=== PATIENT | male | born 1950 | race Caucasian/White ===

== ENCOUNTER 2017-07-09 08:07 | Inpatient (IN) ==
[2017-07-09] MEDS ORDERED: *HR* EPINEPHrine 1 MG/ML AMPUL ONE ×3 (08:15→08:36)
[2017-07-09] MEDS ORDERED: methylPREDNISolone 125 MG/2 ML VIAL IVP ONE (08:17)
[2017-07-09] MEDS ORDERED: Famotidine 20 MG/2 ML VIAL IVP ONE (08:17)
[2017-07-09] MEDS ORDERED: Propofol 500 MG/50 ML INFUS..BTL ONE (08:23)
[2017-07-09] MEDS ORDERED: 0.9 % Sodium Chloride 1,000 ML ONE ×2 (08:26→09:36)
--- NOTE | 2017-07-09 08:44 | Emergency Department Note ---
Addendum entered and electronically signed by Colin Cedeno DO 10:08: This addendum serves to add dictation for the patient's EKG performed after intubation. EKG dated 07/09/17 at 09:13 interpreted as sinus rhythm with rate of 64. Normal intervals. Normal axis. Nonspecific ST-T changes. Compared to previous dated 09/02/2013 showing no acute ischemic changes. Original Note: Disposition Clinical Impression: Airway compromise Hypertension Qualifiers: Hypertension type: unspecified Qualified Code(s): I10 - Essential (primary) hypertension BETTYE inhibitor-aggravated angioedema Qualifiers: Encounter type: initial encounter Qualified Code(s): T78.3XXA - Angioneurotic edema, initial encounter Disposition: Admitted As Inpatient Condition: Critical Time of Disposition: 10:02 General Adult HPI - General Chief complaint: ED General Medical Stated complaint: tongue swelling Time Seen by Provider: 07/09/17 08:11 Source: patient, family Mode of arrival: ambulatory Limitations: no limitations Nursing Notes Reviewed: Yes Vital Signs Reviewed: Yes - History of Present Illness HPI Narrative: Mr. Poe, a 67-year-old male, presents from home for evaluation of swelling of his tongue. Onset this morning when he awoke and is getting worse. Patient is currently on an BETTYE inhibitor. He has been for many years. His dose was recently changed from 30 mg to 40 mg; first 40 mg dose was yesterday. He did take his BETTYE inhibitor this morning. No other changes in medications or unusual exposures. PMH: Hypertension, COPD Habits: EtOH use, current every day smoker ROS: Positive: Swelling of his tongue Negative: Fever, chills, nausea, vomiting, chest pains, dyspnea Pain Scale: 0 - Related Data Previous Rx's Medication Instructions Recorded Ciprofloxacin HCl [Cipro] 500 mg PO BID #14 tab 04/03/16 metroNIDAZOLE [Flagyl] 500 mg PO TID #21 tablet 04/03/16 Allergies Allergy/AdvReac Type Severity Reaction Status Date / Time No Known Allergies Allergy Verified 07/09/17 08:13 All systems ED: reviewed and negative except as stated. Review of Systems: As Per HPI Past Medical History - Past Medical History Medical history: Reports: COPD, hypertension Surgical history: Reports: cholecystectomy Psychiatric history: Reports: no psych history - Social History Smoking Status: Current every day smoker Smokeless Tobacco Status: No Alcohol use: Reports: none Drug use: Reports: none Physical Exam Vital Signs Reviewed General: Patient is alert, oriented, and in no acute distress. HEENT: Head is normocephalic and atraumatic. Oral mucosa moist. Right half of tongue is substantially swollen. Floor of mouth is beginning to swell. Roof of mouth is on swollen this time. Posterior pharynx difficult to visualize. Cardiovascular: Heart regular rate and rhythm without clicks, rubs, gallops, or murmurs. No JVD. PMI nondisplaced. Respiratory: Symmetric chest rise with good respiratory effort. Bilateral breath sounds are clear without wheezing, crackles, or rhonchi. Psych: Patient's affect is appropriate for situation. - General General appearance: alert, anxious Course Course Narrative: Patient presents with overt angioedema. Currently localize the right half of his tongue and his substantial. Initially, mild to moderate swelling of the floor of his mouth. No swelling to the roof of his mouth. We followed the patient in the room after triage. During my examination, the swelling of his tongue was becoming visibly worse. His speech was slurred because of his tongue. He was surprisingly calm. He agreed to intubation. When patient was laid supine prior to RSI, that was his first set of concern when his tongue began occluding his airway. We provided IM epinephrine. As soon as IV access was obtained, he was intubated with 30 mg etomidate, 100 mg succinylcholine. Direct visualization was poor; sweling of tongue and floor of mouth inhibited vallecula elevation. Intubation without difficulty using C Amador using 7.5 tube. After intubation, I updated the patient's daughter. She notes he has a history of heavy social alcohol use. After intubation, placed patient on propofol started at 5 mcg/m. This was quickly titrated up to 15. His pressures maintained above 170 systolic. He was bucking the tube despite propofol 15+4 mg Versed plus an additional 30 of etomidate. We paralyzed him with 10 mg vecuronium and increased propofol to 20. Vecuronium was still on board on transport to ICU. Vital Signs Temperature 97.7 F 07/09/17 08:13 Pulse Rate 74 07/09/17 08:13 Respiratory Rate 11 07/09/17 08:13 Blood Pressure 194/116 07/09/17 08:13 O2 Sat by Pulse Oximetry 98 07/09/17 08:13 Temperature 97.7 F 07/09/17 08:13 Pulse Rate 66 07/09/17 09:00 Respiratory Rate 11 07/09/17 09:31 Blood Pressure 191/92 07/09/17 09:31 O2 Sat by Pulse Oximetry 100 07/09/17 09:07 Oxygen Delivery Oxygen Delivery Ventilator Procedures - Intubation Time out performed: No sedative: Etomidate Mg Given: 30 paralytic: Succinylcholine Mg Given: 100 Laryngoscope: fiber optic video scope Assist Device Used: fiber optic device ET Tube Size: 7.5 ET Tube Uncuffed: Yes Tube Secured Depth (cm): 25 Tube Secured Location: lips Tube Placement Confirmation: visualized tube passing through cords, equal breath sounds bilaterally, no breath sounds over epigastrium, confirmation by capnometry Patient Tolerated Procedure: well, other (Had difficulty with post-intubation sedation.) Intubation Complications: difficult intubation (secondary to rapidly progressing angioedema.) Medical Decision Making - Lab Data Result diagrams: 07/09/17 08:36 07/09/17 08:36 Lab Results 07/09/17 07/09/17 Range/Units 08:36 08:36 WBC 5.9 (4.3-11.1) K/mcL RBC 4.65 (4.19-5.50) M/mcL Hgb 14.5 (12.9-16.9) g/dL Hct 42.4 (37.5-50.1) % MCV 91.2 (83.0-100.0) fL MCH 31.2 (28.0-33.3) pg MCHC 34.2 (31.6-35.5) g/dL RDW 13.6 (11.5-14.5) % Plt Count 238 (140-400) K/mcL MPV 9.0 L (9.4-12.4) fL Immature Gran % 0.2 (0-4) % Seg Neutrophils % 63.1 % Lymphocytes % 23.4 % Monocytes % 10.4 % Eosinophils % 2.7 % Basophils % 0.2 % Neutrophils # 3.7 (1.6-8.9) K/mcL Lymphocytes # 1.4 (0.6-4.6) K/mcL Monocytes # 0.6 (0.0-1.3) K/mcL Eosinophils # 0.2 (0.0-0.6) K/mcL Basophils # 0.0 (0.0-0.2) K/mcL Sodium 134 L (136-145) mEq/L Potassium 4.3 (3.5-4.5) mEq/L Chloride 100 (98-109) mEq/L Carbon Dioxide 28 (19-29) mEq/L BUN 11 (8-26) mg/dL Creatinine 0.74 (0.72-1.25) mg/dL Est GFR ( Amer) > 60 (> 60) Est GFR (Non-Af Amer) > 60 (> 60) BUN/Creatinine Ratio 15 (6-26) Glucose 92 (70-99) mg/dL Calculated Osmolality 277 L (280-300) Calcium 9.0 (8.6-10.8) mg/dL Total Bilirubin 0.5 (0.2-1.2) mg/dL AST 19 (5-34) Units/L ALT 15 (0-55) Units/L Alkaline Phosphatase 52 (38-126) Units/L Serum Total Protein 7.1 (6.0-8.3) g/dL Albumin 3.6 (3.5-5.0) g/dL Globulin 3.5 (2.4-3.5) g/dL Albumin/Globulin Ratio 1.0 L (1.1-2.2) Critical Care Time Critical Care Time: Yes Total Critical Care Time: 45 Attestation: The high probability of a clinically significant, sudden or life threatening deterioration of the [resp] system(s) required my full and direct attention, intervention and personal management. The aggregate critical care time was [45] minutes. This time is in addition to time spent performing reported procedures but includes the following: [X] Data Review and interpretation [X] Patient assessment and monitoring of vital signs [X] Documentation [X] Medication orders and management Attestation Statement - Attestation Attestation: I examined this patient and my medical decision-making was reviewed with the Resident Physician, Dr. Cedeno. I agree with the documented findings, disposition and treatment plan as described except to the extent set forth below. Patient is a 67-year-old white male, with a history of hypertension, who was escorted directly back from triage for tongue swelling. Patient with visible tongue swelling upon being placed in the cot, difficulty managing secretions, difficulty with speech due to severity of tongue swelling. Patient states this began when he awoke this morning approximately 5 hours prior to arrival. Patient states that he feels the symptoms are worsening fairly quickly. Patient is awake alert and oriented 4 with a GCS of 15, he has no visible facial swelling or perioral edema no periorbital edema no rash or skin changes are noted. Patient states he has never had anything like this happen in the past. He is chronically on bettye inhibitors for his blood pressure and had a recent increase in his dosage yesterday. Patient did also take his blood pressure medicine this morning upon waking. We immediately placed the patient in a bad placed on a cardiac cath lab manager and continuous pulse ox asked for 2 large bore IVs to be established with IV fluids and asked for immediate IM epi to be administered on his arrival. Verbal orders were given for IV Solu-Medrol, Benadryl, Pepcid. Patient was hypertensive on arrival. We immediately explained to the patient that we would likely need to intubate him to secure his airway due to the severity of the swelling. Patient consented to this procedure stated "do whatever you need to do". His daughter was escorted to family room. Upon closer inspection appears that the majority of the swelling is to the right side of the tongue but due to severity of the swelling is starting to shift structures anatomically to the left in the floor of his mouth is significantly edematous and elevated. Patient also beginning to have some visible swelling noted along the left jawline in the submandibular area. We called and ED alert, we paged respiratory and anesthesia overhead. Preparations are made to intubate the patient. Patient received etomidate and succinylcholine as RSI medications, we did attempt visualization of the cords with direct laryngoscopy which was difficult secondary to the edema. We utilized CMAC with good visualization of cords and intubate the patient without difficulty. Tube was secured, placement was verified with end-tidal CO2, fogging in the tube, and good breath sounds bilaterally. I personally supervised Dr. Cedeno during the intubation. Please see his procedure note for details. Propofol was initiated as well as Versed for sedation following intubation. Labs were drawn and sent, NG tube was placed and potable chest x-ray was obtained. We did advance the NG tube and ET tube placement is appropriate. We notified the eICU attending regarding needing a bed for this patient and patient's ED course. At this time patient remains hypertensive we are adjusting sedation and will closely continue to monitor. Patient was accepted to the ICU for angioedema and respiratory failure.
[2017-07-09] MEDS ORDERED: *HR* Etomidate 20 MG/10 ML AMPUL IVP ONE (08:45)
[2017-07-09 08:50] LABS: Basophils % 0.2 %; Eosinophils # 0.2 K/mcL (0.0-0.6); Eosinophils % 2.7 %; Hematocrit 42.4 % (37.5-50.1); Hemoglobin 14.5 g/dL (12.9-16.9); Immature Granulocytes % 0.2 % (0-4); Lymphocytes # 1.4 K/mcL (0.6-4.6); Lymphocytes % 23.4 %; Mean Corpuscular HGB Conc 34.2 g/dL (31.6-35.5); Mean Corpuscular Hemoglobin 31.2 pg (28.0-33.3); Mean Corpuscular Volume 91.2 fL (83.0-100.0); Monocytes # 0.6 K/mcL (0.0-1.3); Monocytes % 10.4 %; Neutrophils # 3.7 K/mcL (1.6-8.9); Platelet Count 238 K/mcL (140-400); Red Blood Count 4.65 M/mcL (4.19-5.50); Red Cell Distribution Width 13.6 % (11.5-14.5); Segmented Neutrophils % 63.1 %
[2017-07-09] MEDS ORDERED: *HR* Vecuronium 10 MG VIAL ONE (08:57)
[2017-07-09 08:58] LABS: Alanine Aminotransferase 15 Units/L (0-55); Albumin 3.6 g/dL (3.5-5.0); Alkaline Phosphatase 52 Units/L (38-126); Aspartate Amino Transferase 19 Units/L (5-34); BUN/Creatinine Ratio 15 (6-26); Bilirubin,Total 0.5 mg/dL (0.2-1.2); Blood Urea Nitrogen 11 mg/dL (8-26); Carbon Dioxide 28 mEq/L (19-29); Chloride 100 mEq/L (98-109); Globulin 3.5 g/dL (2.4-3.5); Glucose 92 mg/dL (70-99); Osmolality,Calculated 277 (280-300); Potassium 4.3 mEq/L (3.5-4.5); Sodium 134 mEq/L (136-145); Total Protein 7.1 g/dL (6.0-8.3); eGFR For African Americans > 60 (> 60); eGFR For Non-African Americans > 60 (> 60)
--- NOTE | 2017-07-09 09:49 | Pulmonology History & Physical ---
<Lamar Freedman - Last Filed: 07/09/17 10:40> Date of Encounter: 07/09/17 Time of Encounter: 10:14 Assessment and Plan (1) BETTYE inhibitor-aggravated angioedema Current visit: Yes Status: Acute Patient is currently on an BETTYE inhibitor. He has been for many years. His dose was recently changed from 30 mg to 40 mg; first 40 mg dose was yesterday. He did take his BETTYE inhibitor this morning. Patient presents to the emergency department with increased worsening tongue swelling. Patient was intubated to protect the patient's airway. Patient actively swollen in his tongue and lips at this time. Continue to closely monitor. Continue to ventilate the patient until angioedema has resolved. Qualifiers: Encounter type: initial encounter Qualified Code(s): T78.3XXA - Angioneurotic edema, initial encounter; T46.4X5A - Adverse effect of angiotensin -converting-enzyme inhibitors, initial encounter (2) COPD (chronic obstructive pulmonary disease) Current visit: Yes Status: Acute Chronic condition. We will monitor patient's respiratory status through ABGs and provide duonebs every 6 hours. Qualifiers: COPD type: unspecified COPD Qualified Code(s): J44.9 - Chronic obstructive pulmonary disease, unspecified (3) History of alcohol abuse Current visit: Yes Status: Acute History of alcohol abuse per her daughter. Patient currently sedated at this time. Upon extubation we will begin CIWA protocol. (4) Hypertension Current visit: Yes Status: Acute Chronic condition. We will obtain frequent vital signs. If patient remains hypertensive we will provide 10 mg hydralazine every 6 hours as needed Qualifiers: Hypertension type: unspecified Qualified Code(s): I10 - Essential (primary ) hypertension (5) DVT prophylaxis Current visit: Yes Status: Acute Subcutaneous heparin History of Present Illness Chief complaint: Angioedema HPI: Mr. Poe is a 67 year old male who presented to the ED for evaluation of swelling of his tongue. Onset this morning when he awoke and is getting worse. Patient is currently on an BETTYE inhibitor. He has been for many years. His dose was recently changed from 30 mg to 40 mg; first 40 mg dose was yesterday. He did take his BETTYE inhibitor this morning. No other changes in medications or unusual exposures. Per daughter, patient has a long-standing history of heavy alcohol abuse. No other history can be obtained at this time. Patient is intubated and sedated. The majority of the history of present illness was obtained through charts. Past Med Surg Social Fam HX - Past Medical History Medical history: COPD, hypertension Psychiatric history: no psych history - Past Surgical History Surgical History: cholecystectomy - Social History Smoking Status: Current every day smoker Smokeless Tobacco Status: No Alcohol use: none Drug use: none Medications and Allergies Albuterol Sulfate [Proair Hfa] 2 puff IH QID PRN 07/09/17 [History] Lisinopril/Hydrochlorothiazide [Zestoretic 10-12.5 mg Tablet] 1 tab PO DAILY [History] 3 Allergy/AdvReac Type Severity Reaction Status Date / Time No Known Allergies Allergy Verified 07/09/17 08:13 ROS unobtainable: due to endotracheal tube All Systems: A 10-system review of systems was performed and is negative for pertinent findings except as documented above in the HPI. Physical Examination Vital Signs: Vital Signs, Last 4 Hours Resp BP 07/09/17 09:31 11 191/92 General appearance: comatose Eyes: nonicteric ENT: oropharynx dry Neck: supple, no JVD Effort: normal Inspection: normal Auscultation: bilateral: clear Cardiovascular: regular rate and rhythm Gastrointestinal: normoactive bowel sounds, non-distended Integumentary: normal Extremities: no cyanosis, pulses normal, edema Musculoskeletal: no deformities Gait: normal posture unable to assess due to mental status Results - Laboratory Findings CBC and BMP: 07/09/17 08:36 07/09/17 08:36 Abnormal lab findings: Abnormal lab results MPV 9.0 fL (9.4-12.4) L 07/09/17 08:36 Sodium 134 mEq/L (136-145) L 07/09/17 08:36 Calculated Osmolality 277 (280-300) L 07/09/17 08:36 Albumin/Globulin Ratio 1.0 (1.1-2.2) L 07/09/17 08:36 - Diagnostic Findings Chest x-ray: report reviewed, image reviewed <Keagan Mckenzie - Last Filed: 07/09/17 11:12> Date of Encounter: 07/09/17 History of Present Illness HPI: Mr. Poe is a 67 year old male All Systems: A 10-system review of systems was performed and is negative for pertinent findings except as documented above in the HPI. Physical Examination Vital Signs: Vital Signs, Last 4 Hours Temp Pulse Resp BP Pulse Ox 07/09/17 11:00 57 14 172/78 99 07/09/17 10:00 97.5 F L 61 17 190/97 99 07/09/17 09:31 11 191/92 Results - Laboratory Findings CBC and BMP: 07/09/17 08:36 07/09/17 08:36 Abnormal lab findings: Abnormal lab results MPV 9.0 fL (9.4-12.4) L 07/09/17 08:36 Sodium 134 mEq/L (136-145) L 07/09/17 08:36 Calculated Osmolality 277 (280-300) L 07/09/17 08:36 Albumin/Globulin Ratio 1.0 (1.1-2.2) L 07/09/17 08:36 - Attending Attestation I examined this patient and my medical decision-making was reviewed with the Resident Physician. I agree with the documented findings, disposition and treatment plan as described except to the extent set forth below. We independently had [id number] contact with the patient Patient seen and examined at bedside Labs, radiology, chart personally reviewed. Neuropsych: Intubated and sedated will continue daily sedation holiday as clinically able. History of ethanol abuse continue to monitor for symptoms of withdrawal when sedation has stopped Pulm: Intubated for airway management with underlying angioedema likely secondary to BETTYE inhibitor. Continue H1 and H2 juan along with steroid avoidance of BETTYE inhibitor. Chest x-ray notable for hyperinflation consistent COPD schedule bronchodilators Cards: History of hypertension currently elevated think this is more related to need for more sedation while on vent. We will adjust this and restart home antihypertensives except for BETTYE inhibitor FEN-GI: Nothing by mouth for now GI prophylaxis Renal: No evidence of SUHA continue to monitor ID: No evidence of infection Heme/Onc: DVT prophylaxis given Endo: Glucose Monitored Integ/MSK: Skin Care per routine ICU Nursing Protocol to prevent ulcers. Dispo: He will remain in ICU for ventilator management CODE: Full code
[2017-07-09] MEDS ORDERED: Lacri-Lube 3.5 GM TUBE BOTH EYES PRN (09:51)
[2017-07-09] MEDS: *HR* Heparin 5,000 UNIT/ML VIAL SQ SCH ×2 (10:17→18:12)
[2017-07-09] MEDS ORDERED: Dextrose Gel 15 GM PO PRN ×2 (10:23)
[2017-07-09] MEDS ORDERED: *HR* Dextrose 50 % in Water (Syg) 50 ML SYRINGE IVP PRN (10:23)
[2017-07-09] MEDS ORDERED: D5% in Water 1,000 ML IVC PRN (10:23)
[2017-07-09] MEDS: FentaNYL (PF) 1,000 MCG in 0.9 % Sodium Chloride 80 ML IVC SCH ×2 (10:51→21:30)
[2017-07-09] MEDS: 0.9 % Sodium Chloride 1,000 ML IVC SCH ×2 (10:52→15:34)
[2017-07-09] MEDS: Insulin LISPRO 300 UNITS/3 ML VIAL SQ SCH ×4 (10:52→21:19)
[2017-07-09] MEDS: Ipratropium/Albuterol Neb 3 ML IH SCH ×3 (11:41→21:35)
[2017-07-09] MEDS: Lacri-Lube 3.5 GM TUBE BOTH EYES SCH ×4 (12:46→23:58)
[2017-07-09 14:34] LABS: ABG Base Excess -0.7 mEq/L (-2.0 to 3.0); ABG HCO3 26 mEq/L (21-27); ABG Oxygen Saturation 98 % (95-98); ABG PCO2 52 mmHg (35-45); ABG PH 7.31 pH Units (7.32-7.45); ABG PO2 110 mmHg (85-104); ABG TCO2 28 mEq/L (20-26); Blood Gas FiO2 40 %; Blood Gas Modality VENT
[2017-07-09] MEDS: Famotidine 20 MG/2 ML VIAL IVP SCH (17:09)
[2017-07-09] MEDS: methylPREDNISolone 125 MG/2 ML VIAL IVP SCH ×2 (17:09→23:55)
[2017-07-09] MEDS ORDERED: Pantoprazole 40 MG VIAL IVP SCH (18:00)
[2017-07-09] MEDS: Chlorhexidine Rinse 15 ML MOUTHWASH MM SCH (20:51)
[2017-07-10] MEDS: 0.9 % Sodium Chloride 1,000 ML IVC SCH (02:02)
[2017-07-10 03:13] LABS: BUN/Creatinine Ratio 19 (6-26); Blood Urea Nitrogen 12 mg/dL (8-26); Carbon Dioxide 21 mEq/L (19-29); Chloride 105 mEq/L (98-109); Potassium 4.6 mEq/L (3.5-4.5); Sodium 133 mEq/L (136-145); eGFR For African Americans > 60 (> 60)
[2017-07-10 03:14] LABS: Calcium 7.9 mg/dL (8.6-10.8); Glucose 130 mg/dL (70-99); Magnesium 1.8 mg/dL (1.6-2.6); Osmolality,Calculated 278 (280-300); eGFR For Non-African Americans > 60 (> 60)
[2017-07-10 03:28] LABS: Hematocrit 40.3 % (37.5-50.1); Hemoglobin 13.4 g/dL (12.9-16.9); Immature Granulocytes % 0.4 % (0-4); Lymphocytes # 0.4 K/mcL (0.6-4.6); Lymphocytes % 5.5 %; Mean Corpuscular HGB Conc 33.3 g/dL (31.6-35.5); Mean Corpuscular Hemoglobin 31.7 pg (28.0-33.3); Mean Corpuscular Volume 95.3 fL (83.0-100.0); Mean Platelet Volume 9.6 fL (9.4-12.4); Monocytes # 0.1 K/mcL (0.0-1.3); Monocytes % 1.6 %; Neutrophils # 7.4 K/mcL (1.6-8.9); Platelet Count 185 K/mcL (140-400); Red Blood Count 4.23 M/mcL (4.19-5.50); Red Cell Distribution Width 14.1 % (11.5-14.5); Segmented Neutrophils % 92.5 %
[2017-07-10] MEDS: Ipratropium/Albuterol Neb 3 ML IH SCH ×4 (03:43→21:45)
[2017-07-10] MEDS: Lacri-Lube 3.5 GM TUBE BOTH EYES SCH ×5 (04:12→20:20)
[2017-07-10 05:24] LABS: ABG Base Excess -2.2 mEq/L (-2.0 to 3.0); ABG HCO3 25 mEq/L (21-27); ABG Oxygen Saturation 95 % (95-98); ABG PCO2 50 mmHg (35-45); ABG PO2 86 mmHg (85-104); ABG TCO2 26 mEq/L (20-26)
[2017-07-10 05:26] LABS: Blood Gas FiO2 40 %; Blood Gas Modality ASSIST CONTROL
[2017-07-10] MEDS: *HR* Heparin 5,000 UNIT/ML VIAL SQ SCH ×2 (06:12→17:57)
[2017-07-10] MEDS: Famotidine 20 MG/2 ML VIAL IVP SCH ×2 (06:13→17:57)
[2017-07-10] MEDS: FentaNYL (PF) 1,000 MCG in 0.9 % Sodium Chloride 80 ML IVC SCH (06:28)
[2017-07-10] MEDS: methylPREDNISolone 125 MG/2 ML VIAL IVP SCH ×3 (08:41→23:48)
[2017-07-10] MEDS: Chlorhexidine Rinse 15 ML MOUTHWASH MM SCH ×2 (08:47→20:19)
[2017-07-10] MEDS: Dexmedetomidine HCl 400 MCG/100 ML MLS IVC SCH (08:49)
[2017-07-10] MEDS: Insulin LISPRO 300 UNITS/3 ML VIAL SQ SCH ×4 (08:49→21:05)
--- NOTE | 2017-07-10 09:25 | Pulmonology Progress Note ---
<Gregorio Crespo - Last Filed: 07/10/17 11:18> Date of Encounter: 07/10/17 Time of Encounter: 09:19 Assessment and Plan (1) BETTYE inhibitor-aggravated angioedema Current Visit: Yes Status: Acute Patient has been on ACEI for 4 years, he was recently dose changed from 30 to 40 mg. Patient presented to ED with worsened tongue swelling, and emergently intubated to protect his airway. due to history less likely HAE. - Day 2 of admission, remains to have angioedema - remains on vent until angioedema subsides. Propofol DC'ed, started on Precedex to get off sedation and attempt spontaneous respiration. - continue benadryl - continue hold ACEI - consider FFP if angioedema continues or worsens - continue methylprednisolone (solumedrol) 60 mg IV Q8hr Qualifiers: Encounter type: initial encounter Qualified Code(s): T78.3XXA - Angioneurotic edema, initial encounter; T46.4X5A - Adverse effect of angiotensin -converting-enzyme inhibitors, initial encounter (2) Hypertension Current Visit: Yes Status: Acute Chronic, currently stable to hypotensive - continue to closely follow BP - consider labetalol PRN if BP increases Qualifiers: Hypertension type: unspecified Qualified Code(s): I10 - Essential (primary ) hypertension (3) COPD (chronic obstructive pulmonary disease) Current Visit: Yes Status: Acute chronic COPD. - ABG pCO2 50, increased rate to 20 - continue to monitor ABG - continue duonebs q6hrs - continue methylprednisolone (solumedrol) 60 mg IV Q8hr Qualifiers: COPD type: unspecified COPD Qualified Code(s): J44.9 - Chronic obstructive pulmonary disease, unspecified (4) DVT prophylaxis Current Visit: Yes Status: Acute subQ heparin (5) History of alcohol abuse Current Visit: Yes Status: Acute Hx of etoh abuse according to daughter and son. - CIWA protocol upon extubation Subjective Principal diagnosis: ACEI induced Angioedema Interval history: Mr Poe is a 67 yo M on day 2 of admission 2/2 angioedema most likely 2/2 ACEI with Hx of COPD, EtOH abuse, and HTN. Patient was seen with son today. Son believes patient "seems more swollen today compared to yesterday." Patient remains intubated and restrained. Patient awoke, and was responsive to verbal commands. Objective PUL Vital signs: Last Vital Signs Temp 97.8 F 07/10/17 07:20 Pulse 57 07/10/17 08:00 Resp 14 07/10/17 08:25 BP 95/58 07/10/17 08:25 Pulse Ox 97 07/10/17 08:25 General appearance: other (somber to agitated during exam) Eyes: nonicteric ENT: oropharynx erythematous Neck: supple Effort: other (on ventilator, transmitted sounds) Cardiovascular: regular rate and rhythm (difficult to hear heart sounds, patient was agitated during physical exam) Gastrointestinal: normoactive bowel sounds Integumentary: normal Extremities: no cyanosis, no edema Musculoskeletal: no deformities Gait: other (patient restrained) pupils equal and round other (unable to evaluate) Ventilator Settings Ventilator Settings: Ventilator Settings, Last 8 Hours Ventilator Mode A/C Ventilator Mode A/C Ventilator Mode A/C Ventilator Mode A/C Ventilator Mode A/C Ventilator Mode A/C Ventilator Mode A/C Ventilator Mode A/C Ventilator Mode A/C Ventilator Mode A/C Ventilator Mode A/C Ventilator Mode A/C Ventilator Tidal Volume 500 Setting Ventilator Tidal Volume 500 Setting Ventilator Tidal Volume 500 Setting Ventilator Tidal Volume 500 Setting Ventilator Tidal Volume 500 Setting Ventilator Tidal Volume 500 Setting Ventilator Tidal Volume 500 Setting Ventilator Tidal Volume 500 Setting Ventilator Tidal Volume 500 Setting Ventilator Tidal Volume 500 Setting Ventilator Tidal Volume 500 Setting Ventilator Tidal Volume 500 Setting Ventilator Respiratory Rate 14 Setting Ventilator Respiratory Rate 14 Setting Ventilator Respiratory Rate 14 Setting Ventilator Respiratory Rate 14 Setting Ventilator Respiratory Rate 14 Setting Ventilator Respiratory Rate 14 Setting Ventilator Respiratory Rate 14 Setting Ventilator Respiratory Rate 14 Setting Ventilator Respiratory Rate 14 Setting Ventilator Respiratory Rate 14 Setting Ventilator Respiratory Rate 14 Setting Ventilator Respiratory Rate 14 Setting Actual Respiratory Rate 14 Actual Respiratory Rate 14 Actual Respiratory Rate 17 Actual Respiratory Rate 17 Actual Respiratory Rate 15 Actual Respiratory Rate 19 Actual Respiratory Rate 15 Actual Respiratory Rate 18 Actual Respiratory Rate 17 Actual Respiratory Rate 17 Actual Respiratory Rate 17 Positive End Expiratory 5 Pressure Positive End Expiratory 5 Pressure Positive End Expiratory 5 Pressure Positive End Expiratory 5 Pressure Positive End Expiratory 5 Pressure Positive End Expiratory 5 Pressure Positive End Expiratory 5 Pressure Positive End Expiratory 5 Pressure Positive End Expiratory 5 Pressure Positive End Expiratory 5 Pressure Positive End Expiratory 5 Pressure Positive End Expiratory 5 Pressure Peak Inspiratory Airway 24 Pressure Peak Inspiratory Airway 24 Pressure Peak Inspiratory Airway 24 Pressure Peak Inspiratory Airway 16 Pressure Peak Inspiratory Airway 23 Pressure Peak Inspiratory Airway 21 Pressure Peak Inspiratory Airway 28 Pressure Peak Inspiratory Airway 22 Pressure Peak Inspiratory Airway 25 Pressure Peak Inspiratory Airway 25 Pressure Peak Inspiratory Airway 20 Pressure Results - Laboratory Findings CBC and BMP: 07/10/17 02:44 07/10/17 02:44 ABG ABG pH 7.30 pH Units (7.32-7.45) L 07/10/17 05:10 ABG pCO2 50 mmHg (35-45) H 07/10/17 05:10 ABG pO2 86 mmHg (85-104) 07/10/17 05:10 ABG O2 Saturation 95 % (95-98) 07/10/17 05:10 Abnormal lab findings: Abnormal lab results Lymphocytes # 0.4 K/mcL (0.6-4.6) L 07/10/17 02:44 ABG pH 7.30 pH Units (7.32-7.45) L 07/10/17 05:10 ABG pCO2 50 mmHg (35-45) H 07/10/17 05:10 ABG Base Excess -2.2 mEq/L (-2.0 to 3.0) L 07/10/17 05:10 Sodium 133 mEq/L (136-145) L 07/10/17 02:44 Potassium 4.6 mEq/L (3.5-4.5) H 07/10/17 02:44 Creatinine 0.62 mg/dL (0.72-1.25) L 07/10/17 02:44 Glucose 130 mg/dL (70-99) H 07/10/17 02:44 POC Glucose 126 (58-89) H 07/09/17 19:55 Calculated Osmolality 278 (280-300) L 07/10/17 02:44 Calcium 7.9 mg/dL (8.6-10.8) L 07/10/17 02:44 Albumin/Globulin Ratio 1.0 (1.1-2.2) L 07/09/17 08:36 - Clinical Findings Intake & Output: Intake & Output 07/09/17 07/10/17 07/10/17 23:59 07:59 15:59 Intake Total 263 / 263 1100 / 1100 100 / 100 Output Total 325 / 325 255 / 255 Balance -62 / -62 845 / 845 100 / 100 Weight 80.2 kg Consult Discharge Plan - Plan Referrals: [facility] [Primary Care Provider] - <Ashlyn Ray S - Last Filed: 07/10/17 18:43> Date of Encounter: 07/10/17 Objective PUL Vital signs: Last Vital Signs Temp 98.3 F 07/10/17 18:22 Pulse 46 07/10/17 18:22 Resp 16 07/10/17 18:22 BP 108/63 07/10/17 18:22 Pulse Ox 98 07/10/17 18:22 Ventilator Settings Ventilator Settings: Ventilator Settings, Last 8 Hours Ventilator Mode A/C Ventilator Mode A/C Ventilator Mode A/C Ventilator Mode A/C Ventilator Mode A/C Ventilator Mode A/C Ventilator Tidal Volume 500 Setting Ventilator Tidal Volume 500 Setting Ventilator Tidal Volume 500 Setting Ventilator Tidal Volume 500 Setting Ventilator Tidal Volume 500 Setting Ventilator Tidal Volume 500 Setting Ventilator Respiratory Rate 14 Setting Ventilator Respiratory Rate 14 Setting Ventilator Respiratory Rate 14 Setting Ventilator Respiratory Rate 14 Setting Ventilator Respiratory Rate 14 Setting Ventilator Respiratory Rate 14 Setting Actual Respiratory Rate 14 Actual Respiratory Rate 14 Actual Respiratory Rate 14 Actual Respiratory Rate 14 Actual Respiratory Rate 14 Actual Respiratory Rate 14 Positive End Expiratory 5 Pressure Positive End Expiratory 5 Pressure Positive End Expiratory 5 Pressure Positive End Expiratory 5 Pressure Positive End Expiratory 5 Pressure Positive End Expiratory 5 Pressure Peak Inspiratory Airway 24 Pressure Peak Inspiratory Airway 24 Pressure Peak Inspiratory Airway 24 Pressure Peak Inspiratory Airway 24 Pressure Peak Inspiratory Airway 24 Pressure Peak Inspiratory Airway 24 Pressure Results - Laboratory Findings CBC and BMP: 07/10/17 02:44 07/10/17 02:44 ABG ABG pH 7.30 pH Units (7.32-7.45) L 07/10/17 05:10 ABG pCO2 50 mmHg (35-45) H 07/10/17 05:10 ABG pO2 86 mmHg (85-104) 07/10/17 05:10 ABG O2 Saturation 95 % (95-98) 07/10/17 05:10 Abnormal lab findings: Abnormal lab results Lymphocytes # 0.4 K/mcL (0.6-4.6) L 07/10/17 02:44 ABG pH 7.30 pH Units (7.32-7.45) L 07/10/17 05:10 ABG pCO2 50 mmHg (35-45) H 07/10/17 05:10 ABG Base Excess -2.2 mEq/L (-2.0 to 3.0) L 07/10/17 05:10 Sodium 133 mEq/L (136-145) L 07/10/17 02:44 Potassium 4.6 mEq/L (3.5-4.5) H 07/10/17 02:44 Creatinine 0.62 mg/dL (0.72-1.25) L 07/10/17 02:44 Glucose 130 mg/dL (70-99) H 07/10/17 02:44 POC Glucose 126 (58-89) H 07/09/17 19:55 Calculated Osmolality 278 (280-300) L 07/10/17 02:44 Calcium 7.9 mg/dL (8.6-10.8) L 07/10/17 02:44 Albumin/Globulin Ratio 1.0 (1.1-2.2) L 07/09/17 08:36 - Clinical Findings Intake & Output: Intake & Output 07/10/17 07/10/17 07/10/17 07:59 15:59 23:59 Intake Total 1100 / 1100 2100 / 2100 0 / 0 Output Total 255 / 255 150 / 150 Balance 845 / 845 1950 / 1950 0 / 0 Weight 80.2 kg - Attending Attestation I saw the patient with the resident agree with History and Physical exam findings. 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 But have to sedate him back with precedex as he didnt have any leak around the ET tube NECK : No JVD appreciated Pulmonary : Patient is stable on ventilator with some respiratory acidosis adjusted the ventilator settings . Patient went on SBT he was bradypneic , we checked the air leak around the tube not much air leak around the tube . Patient said to have ACEi angioneurotic edema will continue H1 and H2 blockers IV steroids not much data behind , few case series showed improvement with FFP will try 2 units of FFP . Cardiac : Hemodynamically stable Nutrition/GI: PPI prophylaxis . Renal : Labs and output reviewed Heme onc : No acute issues Disposition : Critical Code status: Full Code Family/POA: Son . I spent 32 minutes of Critical care time with this patient.
[2017-07-10] MEDS ORDERED: 0.9 % Sodium Chloride 1,000 ML IVC SCH (10:01)
[2017-07-10] MEDS ORDERED: 0.9 % Sodium Chloride 1,000 ML IVC ONE (10:02)
--- NOTE | 2017-07-10 11:47 | Electrocardiograph Report ---
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
[2017-07-10] MEDS ORDERED: *HR* Etomidate 40 MG/20 ML VIAL IVP ONE (14:05)
[2017-07-10] MEDS ORDERED: *HR* Midazolam HCl 5 MG/5 ML VIAL IVP ONE (14:05)
[2017-07-10] MEDS ORDERED: *HR* Succinylcholine 200 MG/10 ML VIAL IVP ONE (14:05)
[2017-07-10] MEDS ORDERED: 0.9 % Sodium Chloride 250 ML ONE (17:55)
[2017-07-11] MEDS: FentaNYL (PF) 1,000 MCG in 0.9 % Sodium Chloride 80 ML IVC SCH ×2 (03:20→16:13)
[2017-07-11] MEDS: Ipratropium/Albuterol Neb 3 ML IH SCH ×4 (03:37→21:25)
[2017-07-11] MEDS: Lacri-Lube 3.5 GM TUBE BOTH EYES SCH ×7 (04:00→23:48)
[2017-07-11 04:34] LABS: ABG Base Excess -0.1 mEq/L (-2.0 to 3.0); ABG HCO3 26 mEq/L (21-27); ABG Oxygen Saturation 99 % (95-98); ABG PCO2 47 mmHg (35-45); ABG PH 7.35 pH Units (7.32-7.45); ABG PO2 133 mmHg (85-104); ABG TCO2 27 mEq/L (20-26)
[2017-07-11] MEDS: *HR* Heparin 5,000 UNIT/ML VIAL SQ SCH ×2 (05:48→18:39)
[2017-07-11] MEDS: Famotidine 20 MG/2 ML VIAL IVP SCH ×2 (05:48→18:28)
--- NOTE | 2017-07-11 08:17 | Pulmonology Progress Note ---
<Gregorio Crespo - Last Filed: 07/11/17 14:30> Date of Encounter: 07/11/17 Time of Encounter: 08:15 Assessment and Plan (1) BETTYE inhibitor-aggravated angioedema Current Visit: Yes Status: Acute Patient has been on ACEI for 4 years, he was recently dose changed from 30 to 40 mg. Patient presented to ED with worsened tongue swelling, and emergently intubated to protect his airway. due to history less likely HAE. - angioedema has clinically significantly decreased from yesterday. received 2 units FFP yesterday - currently intubated on precedex. will reevaluate air leak today - continue benadryl, methylprednisolone (solumedrol) 60 mg IV Q8hr - continue hold ACEI - consider giving further FFP if angioedema continues or worsens Qualifiers: Encounter type: initial encounter Qualified Code(s): T78.3XXA - Angioneurotic edema, initial encounter; T46.4X5A - Adverse effect of angiotensin -converting-enzyme inhibitors, initial encounter (2) Hypertension Current Visit: Yes Status: Acute Chronic, currently stable BP 116/60 - continue to closely follow BP - consider labetalol PRN if BP increases Qualifiers: Hypertension type: unspecified Qualified Code(s): I10 - Essential (primary ) hypertension (3) COPD (chronic obstructive pulmonary disease) Current Visit: Yes Status: Acute chronic COPD. - ABG pH 7.35 pCO2 47, HCO3 26 - continue to monitor ABG - continue duonebs q6hrs - continue methylprednisolone (solumedrol) 60 mg IV Q8hr Qualifiers: COPD type: unspecified COPD Qualified Code(s): J44.9 - Chronic obstructive pulmonary disease, unspecified (4) DVT prophylaxis Current Visit: Yes Status: Acute subQ heparin (5) History of alcohol abuse Current Visit: Yes Status: Acute Hx of etoh abuse according to daughter and son. - CIWA protocol upon extubation Subjective Principal diagnosis: ACEI induced Angioedema Interval history: Mr Poe is a 67 yo M on day 2 of admission 2/2 angioedema most likely 2/2 ACEI with Hx of COPD, EtOH abuse, and HTN. Patient was seen alone today. Patient was responsive to questions, and non-verbally expressed discomfort with intubation. No acute events overnight. Objective PUL Vital signs: Last Vital Signs Temp 97.5 F L 07/11/17 08:00 Pulse 53 07/11/17 06:00 Resp 20 07/11/17 06:00 BP 116/59 07/11/17 06:00 Pulse Ox 100 07/11/17 06:00 General appearance: no acute distress ENT: oropharynx moist (tongue is significantly less swollen compared to yesterday) Neck: supple Effort: other (on vent) Cardiovascular: regular rate and rhythm Gastrointestinal: normoactive bowel sounds Integumentary: normal Extremities: no cyanosis normal mental status mood appropriate, affect normal Ventilator Settings Ventilator Settings: Ventilator Settings, Last 8 Hours Ventilator Mode A/C Ventilator Mode A/C Ventilator Mode A/C Ventilator Mode A/C Ventilator Mode A/C Ventilator Mode A/C Ventilator Mode A/C Ventilator Mode A/C Ventilator Mode A/C Ventilator Mode A/C Ventilator Tidal Volume 500 Setting Ventilator Tidal Volume 500 Setting Ventilator Tidal Volume 500 Setting Ventilator Tidal Volume 500 Setting Ventilator Tidal Volume 500 Setting Ventilator Tidal Volume 500 Setting Ventilator Tidal Volume 500 Setting Ventilator Tidal Volume 500 Setting Ventilator Tidal Volume 500 Setting Ventilator Tidal Volume 50 Setting Ventilator Respiratory Rate 20 Setting Ventilator Respiratory Rate 20 Setting Ventilator Respiratory Rate 20 Setting Ventilator Respiratory Rate 20 Setting Ventilator Respiratory Rate 20 Setting Ventilator Respiratory Rate 20 Setting Ventilator Respiratory Rate 20 Setting Ventilator Respiratory Rate 20 Setting Ventilator Respiratory Rate 20 Setting Ventilator Respiratory Rate 20 Setting Actual Respiratory Rate 20 Actual Respiratory Rate 20 Actual Respiratory Rate 20 Actual Respiratory Rate 20 Actual Respiratory Rate 20 Actual Respiratory Rate 20 Actual Respiratory Rate 20 Actual Respiratory Rate 20 Actual Respiratory Rate 20 Positive End Expiratory 5 Pressure Positive End Expiratory 5 Pressure Positive End Expiratory 5 Pressure Positive End Expiratory 5 Pressure Positive End Expiratory 5 Pressure Positive End Expiratory 5 Pressure Positive End Expiratory 5 Pressure Positive End Expiratory 5 Pressure Positive End Expiratory 5 Pressure Positive End Expiratory 5 Pressure Peak Inspiratory Airway 23 Pressure Peak Inspiratory Airway 26 Pressure Peak Inspiratory Airway 26 Pressure Peak Inspiratory Airway 28 Pressure Peak Inspiratory Airway 25 Pressure Peak Inspiratory Airway 26 Pressure Peak Inspiratory Airway 26 Pressure Peak Inspiratory Airway 25 Pressure Peak Inspiratory Airway 27 Pressure Results - Laboratory Findings CBC and BMP: 07/11/17 08:39 07/11/17 07:48 ABG ABG pH 7.35 pH Units (7.32-7.45) 07/11/17 04:25 ABG pCO2 47 mmHg (35-45) H 07/11/17 04:25 ABG pO2 133 mmHg (85-104) H 07/11/17 04:25 ABG O2 Saturation 99 % (95-98) H 07/11/17 04:25 Abnormal lab findings: Abnormal lab results Lymphocytes # 0.4 K/mcL (0.6-4.6) L 07/10/17 02:44 ABG pCO2 47 mmHg (35-45) H 07/11/17 04:25 ABG pO2 133 mmHg (85-104) H 07/11/17 04:25 ABG Total CO2 27 mEq/L (20-26) H 07/11/17 04:25 ABG O2 Saturation 99 % (95-98) H 07/11/17 04:25 Sodium 133 mEq/L (136-145) L 07/10/17 02:44 Potassium 4.6 mEq/L (3.5-4.5) H 07/10/17 02:44 Creatinine 0.62 mg/dL (0.72-1.25) L 07/10/17 02:44 Glucose 130 mg/dL (70-99) H 07/10/17 02:44 POC Glucose 166 (58-89) H 07/10/17 20:44 Calculated Osmolality 278 (280-300) L 07/10/17 02:44 Calcium 7.9 mg/dL (8.6-10.8) L 07/10/17 02:44 Albumin/Globulin Ratio 1.0 (1.1-2.2) L 07/09/17 08:36 - Clinical Findings Intake & Output: Intake & Output 07/10/17 07/11/17 07/11/17 23:59 07:59 15:59 Intake Total 765 / 765 200 / 200 Output Total 100 / 100 445 / 445 300 / 300 Balance 665 / 665 -245 / -245 -300 / -300 Weight 83.189 kg Consult Discharge Plan - Plan Referrals: [facility] [Primary Care Provider] - <Ashlyn Ray - Last Filed: 07/11/17 19:56> Date of Encounter: 07/11/17 Objective PUL Vital signs: Last Vital Signs Temp 97.9 F 07/11/17 15:51 Pulse 51 07/11/17 18:00 Resp 20 07/11/17 18:00 BP 130/74 07/11/17 18:00 Pulse Ox 100 07/11/17 18:00 Ventilator Settings Ventilator Settings: Ventilator Settings, Last 8 Hours Ventilator Mode A/C Ventilator Mode A/C Ventilator Mode A/C Ventilator Mode A/C Ventilator Mode A/C Ventilator Mode A/C Ventilator Mode A/C Ventilator Mode A/C Ventilator Tidal Volume 500 Setting Ventilator Tidal Volume 500 Setting Ventilator Tidal Volume 500 Setting Ventilator Tidal Volume 500 Setting Ventilator Tidal Volume 500 Setting Ventilator Tidal Volume 500 Setting Ventilator Tidal Volume 500 Setting Ventilator Tidal Volume 500 Setting Ventilator Respiratory Rate 20 Setting Ventilator Respiratory Rate 20 Setting Ventilator Respiratory Rate 20 Setting Ventilator Respiratory Rate 20 Setting Ventilator Respiratory Rate 20 Setting Ventilator Respiratory Rate 20 Setting Ventilator Respiratory Rate 20 Setting Ventilator Respiratory Rate 20 Setting Actual Respiratory Rate 20 Actual Respiratory Rate 20 Actual Respiratory Rate 20 Actual Respiratory Rate 22 Actual Respiratory Rate 22 Actual Respiratory Rate 20 Actual Respiratory Rate 22 Actual Respiratory Rate 22 Positive End Expiratory 5 Pressure Positive End Expiratory 5 Pressure Positive End Expiratory 5 Pressure Positive End Expiratory 5 Pressure Positive End Expiratory 5 Pressure Positive End Expiratory 5 Pressure Positive End Expiratory 5 Pressure Positive End Expiratory 5 Pressure Peak Inspiratory Airway 25 Pressure Peak Inspiratory Airway 25 Pressure Peak Inspiratory Airway 24 Pressure Peak Inspiratory Airway 21 Pressure Peak Inspiratory Airway 23 Pressure Peak Inspiratory Airway 22 Pressure Peak Inspiratory Airway 23 Pressure Peak Inspiratory Airway 23 Pressure Results - Laboratory Findings CBC and BMP: 07/11/17 08:39 07/11/17 07:48 ABG ABG pH 7.35 pH Units (7.32-7.45) 07/11/17 04:25 ABG pCO2 47 mmHg (35-45) H 07/11/17 04:25 ABG pO2 133 mmHg (85-104) H 07/11/17 04:25 ABG O2 Saturation 99 % (95-98) H 07/11/17 04:25 Abnormal lab findings: Abnormal lab results WBC 12.5 K/mcL (4.3-11.1) H D 07/11/17 08:39 RBC 3.83 M/mcL (4.19-5.50) L 07/11/17 08:39 Hgb 12.2 g/dL (12.9-16.9) L 07/11/17 08:39 Hct 36.7 % (37.5-50.1) L 07/11/17 08:39 Lymphocytes # 0.4 K/mcL (0.6-4.6) L 07/10/17 02:44 ABG pCO2 47 mmHg (35-45) H 07/11/17 04:25 ABG pO2 133 mmHg (85-104) H 07/11/17 04:25 ABG Total CO2 27 mEq/L (20-26) H 07/11/17 04:25 ABG O2 Saturation 99 % (95-98) H 07/11/17 04:25 Potassium 5.0 mEq/L (3.5-4.5) H 07/11/17 07:48 Creatinine 0.66 mg/dL (0.72-1.25) L 07/11/17 07:48 BUN/Creatinine Ratio 27 (6-26) H 07/11/17 07:48 Glucose 116 mg/dL (70-99) H 07/11/17 07:48 POC Glucose 166 (58-89) H 07/10/17 20:44 Calcium 8.2 mg/dL (8.6-10.8) L 07/11/17 07:48 Albumin/Globulin Ratio 1.0 (1.1-2.2) L 07/09/17 08:36 - Clinical Findings Intake & Output: Intake & Output 07/11/17 07/11/17 07/11/17 07:59 15:59 23:59 Intake Total 200 / 200 154 / 154 114 / 114 Output Total 445 / 445 900 / 900 Balance -245 / -245 -746 / -746 114 / 114 Weight 83.189 kg - Attending Attestation I saw the patient with the resident agree with History and Physical exam findings. 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 But have to sedate him back with hypnotics and fentanyl as he didnt have any leak around the ET tube NECK : No JVD appreciated Pulmonary : Patient is stable on ventilator Patient went on SBT we checked the air leak around the tube not much air leak around the tube . Patient said to have ACEi angioneurotic edema will continue H1 and H2 blockers IV steroids not much data behind , few case series showed improvement with FFP gave 2 units of FFP yesterday. if he is not recovering with no much air leak will call ENT to extubate in OR . Cardiac : Hemodynamically stable Nutrition/GI: PPI prophylaxis . Renal : Labs and output reviewed Heme onc : No acute issues Disposition : Critical Code status: Full Code Family/POA: Son . I spent 32 minutes of Critical care time
[2017-07-11 08:25] LABS: BUN/Creatinine Ratio 27 (6-26); Blood Urea Nitrogen 18 mg/dL (8-26); Calcium 8.2 mg/dL (8.6-10.8); Carbon Dioxide 21 mEq/L (19-29); Chloride 106 mEq/L (98-109); Glucose 116 mg/dL (70-99); Osmolality,Calculated 289 (280-300); Sodium 138 mEq/L (136-145); eGFR For African Americans > 60 (> 60); eGFR For Non-African Americans > 60 (> 60)
[2017-07-11] MEDS: methylPREDNISolone 125 MG/2 ML VIAL IVP SCH ×3 (08:31→23:49)
[2017-07-11] MEDS: Chlorhexidine Rinse 15 ML MOUTHWASH MM SCH ×2 (08:31→21:13)
[2017-07-11] MEDS: Insulin LISPRO 300 UNITS/3 ML VIAL SQ SCH ×4 (08:32→21:13)
[2017-07-11] MEDS: Dexmedetomidine HCl 400 MCG/100 ML MLS IVC SCH ×2 (08:32→16:13)
[2017-07-11 08:46] LABS: Hematocrit 36.7 % (37.5-50.1); Hemoglobin 12.2 g/dL (12.9-16.9); Mean Corpuscular HGB Conc 33.2 g/dL (31.6-35.5); Mean Corpuscular Hemoglobin 31.9 pg (28.0-33.3); Mean Corpuscular Volume 95.8 fL (83.0-100.0); Mean Platelet Volume 9.4 fL (9.4-12.4); Platelet Count 163 K/mcL (140-400); Red Blood Count 3.83 M/mcL (4.19-5.50); Red Cell Distribution Width 14.4 % (11.5-14.5)
[2017-07-12] MEDS: Dexmedetomidine HCl 400 MCG/100 ML MLS IVC SCH ×5 (03:52→23:38)
[2017-07-12] MEDS: Lacri-Lube 3.5 GM TUBE BOTH EYES SCH ×3 (03:52→11:51)
[2017-07-12] MEDS: Ipratropium/Albuterol Neb 3 ML IH SCH ×4 (03:54→21:40)
[2017-07-12 04:53] LABS: ABG Base Excess 5.7 mEq/L (-2.0 to 3.0); ABG HCO3 31 mEq/L (21-27); ABG Oxygen Saturation 96 % (95-98); ABG PCO2 45 mmHg (35-45); ABG PH 7.44 pH Units (7.32-7.45); ABG PO2 81 mmHg (85-104); ABG TCO2 32 mEq/L (20-26)
[2017-07-12 04:54] LABS: Blood Gas Modality ASSIST CONTROL; Blood Gas Respiration Rate 20
[2017-07-12 04:55] LABS: Blood Gas PEEP 5 cm H2O; Blood Gas VT 500 cc
[2017-07-12] MEDS: Famotidine 20 MG/2 ML VIAL IVP SCH (05:31)
[2017-07-12] MEDS: *HR* Heparin 5,000 UNIT/ML VIAL SQ SCH ×2 (05:31→17:37)
[2017-07-12 06:56] LABS: Hematocrit 36.5 % (37.5-50.1); Hemoglobin 12.1 g/dL (12.9-16.9); Mean Corpuscular HGB Conc 33.2 g/dL (31.6-35.5); Mean Corpuscular Hemoglobin 31.3 pg (28.0-33.3); Mean Corpuscular Volume 94.6 fL (83.0-100.0); Mean Platelet Volume 9.9 fL (9.4-12.4); Platelet Count 147 K/mcL (140-400); Red Blood Count 3.86 M/mcL (4.19-5.50); Red Cell Distribution Width 14.4 % (11.5-14.5)
[2017-07-12 07:08] LABS: BUN/Creatinine Ratio 31 (6-26); Blood Urea Nitrogen 19 mg/dL (8-26); Calcium 8.2 mg/dL (8.6-10.8); Carbon Dioxide 24 mEq/L (19-29); Chloride 106 mEq/L (98-109); Glucose 175 mg/dL (70-99); Osmolality,Calculated 289 (280-300); Potassium 4.4 mEq/L (3.5-4.5); eGFR For African Americans > 60 (> 60); eGFR For Non-African Americans > 60 (> 60)
[2017-07-12 07:09] LABS: Sodium 136 mEq/L (136-145)
[2017-07-12] MEDS: Insulin LISPRO 300 UNITS/3 ML VIAL SQ SCH ×4 (07:53→20:58)
[2017-07-12] MEDS: Chlorhexidine Rinse 15 ML MOUTHWASH MM SCH (07:54)
[2017-07-12] MEDS: methylPREDNISolone 125 MG/2 ML VIAL IVP SCH (07:54)
[2017-07-12] MEDS ORDERED: 0.9 % Sodium Chloride 1,000 ML IVC ONE (09:01)
--- NOTE | 2017-07-12 09:04 | Pulmonology Progress Note ---
<Gregorio Crespo - Last Filed: 07/12/17 11:11> Date of Encounter: 07/12/17 Time of Encounter: 09:02 Assessment and Plan (1) BETTYE inhibitor-aggravated angioedema Current Visit: Yes Status: Acute Patient has been on ACEI for 4 years, he was recently dose changed from 30 to 40 mg. Patient presented to ED with worsened tongue swelling, and emergently intubated to protect his airway. due to history less likely HAE. Patient received 2 units FFP on 07/10 and angioedema significantly decreased the next morning. - angioedema has clinically significantly decreased from admission, but is slightly swollen from yesterday. - Patient was extubated today, and started on BiPAP. Patient is currently on versed and fentanyl. aerosolized racemic epinephrine for support. - continue benadryl, methylprednisolone (solumedrol) 60 mg IV Q8hr - continue hold ACEI - consider giving further FFP if angioedema continues or worsens Qualifiers: Encounter type: initial encounter Qualified Code(s): T78.3XXA - Angioneurotic edema, initial encounter; T46.4X5A - Adverse effect of angiotensin -converting-enzyme inhibitors, initial encounter (2) Hypertension Current Visit: Yes Status: Acute Chronic, currently stable BP 116/60 - continue to closely follow BP - consider labetalol PRN if BP increases Qualifiers: Hypertension type: unspecified Qualified Code(s): I10 - Essential (primary ) hypertension (3) COPD (chronic obstructive pulmonary disease) Current Visit: Yes Status: Acute chronic COPD. currently stable - ABG pH 7.44 pCO2 45, HCO3 32 - continue to monitor ABG - continue duonebs q6hrs - continue methylprednisolone (solumedrol) 60 mg IV Q8hr Qualifiers: COPD type: unspecified COPD Qualified Code(s): J44.9 - Chronic obstructive pulmonary disease, unspecified (4) DVT prophylaxis Current Visit: Yes Status: Acute subQ heparin (5) History of alcohol abuse Current Visit: Yes Status: Acute Hx of etoh abuse according to daughter and son. - CIWA protocol upon extubation Subjective Principal diagnosis: ACEI induced Angioedema Interval history: Mr Poe is a 67 yo M on day 4 of admission 2/2 angioedema most likely 2/2 ACEI with Hx of COPD, EtOH abuse, and HTN. Patient was seen alone today. Patient was responsive to questions, and non-verbally expressed discomfort with intubation. No acute events overnight. Objective PUL Vital signs: Last Vital Signs Temp 96.6 F L 07/12/17 07:29 Pulse 44 07/12/17 08:00 Resp 20 07/12/17 08:00 BP 139/78 07/12/17 08:00 Pulse Ox 100 07/12/17 08:00 General appearance: no acute distress ENT: oropharynx moist (angioedema is slightly increased from yesterday, but still remains significanly reduced from two days ago) Effort: normal Auscultation: bilateral: wheezes Cardiovascular: regular rate and rhythm Integumentary: normal (LE bilaterally 0/4 edema. RUE 2/4 edema. LUE 0/4 edema. Right hand capillary refill 1-2 seconds) Extremities: no cyanosis, pink and warm, pulses normal, other Ventilator Settings Ventilator Settings: Ventilator Settings, Last 8 Hours Ventilator Mode A/C Ventilator Mode A/C Ventilator Mode A/C Ventilator Mode A/C Ventilator Mode A/C Ventilator Mode A/C Ventilator Mode A/C Ventilator Mode A/C Ventilator Mode A/C Ventilator Tidal Volume 500 Setting Ventilator Tidal Volume 500 Setting Ventilator Tidal Volume 500 Setting Ventilator Tidal Volume 500 Setting Ventilator Tidal Volume 500 Setting Ventilator Tidal Volume 500 Setting Ventilator Tidal Volume 500 Setting Ventilator Tidal Volume 500 Setting Ventilator Tidal Volume 500 Setting Ventilator Respiratory Rate 20 Setting Ventilator Respiratory Rate 20 Setting Ventilator Respiratory Rate 20 Setting Ventilator Respiratory Rate 20 Setting Ventilator Respiratory Rate 20 Setting Ventilator Respiratory Rate 20 Setting Ventilator Respiratory Rate 20 Setting Ventilator Respiratory Rate 20 Setting Ventilator Respiratory Rate 20 Setting Actual Respiratory Rate 20 Actual Respiratory Rate 20 Actual Respiratory Rate 20 Actual Respiratory Rate 20 Actual Respiratory Rate 20 Actual Respiratory Rate 20 Actual Respiratory Rate 20 Actual Respiratory Rate 20 Positive End Expiratory 5 Pressure Positive End Expiratory 5 Pressure Positive End Expiratory 5 Pressure Positive End Expiratory 5 Pressure Positive End Expiratory 5 Pressure Positive End Expiratory 5 Pressure Positive End Expiratory 5 Pressure Positive End Expiratory 5 Pressure Positive End Expiratory 5 Pressure Peak Inspiratory Airway 26 Pressure Peak Inspiratory Airway 26 Pressure Peak Inspiratory Airway 26 Pressure Peak Inspiratory Airway 26 Pressure Peak Inspiratory Airway 33 Pressure Peak Inspiratory Airway 25 Pressure Peak Inspiratory Airway 25 Pressure Peak Inspiratory Airway 25 Pressure Results - Laboratory Findings CBC and BMP: 07/12/17 06:36 07/12/17 06:36 ABG ABG pH 7.44 pH Units (7.32-7.45) 07/12/17 04:47 ABG pCO2 45 mmHg (35-45) 07/12/17 04:47 ABG pO2 81 mmHg (85-104) L 07/12/17 04:47 ABG O2 Saturation 96 % (95-98) 07/12/17 04:47 Abnormal lab findings: Abnormal lab results RBC 3.86 M/mcL (4.19-5.50) L 07/12/17 06:36 Hgb 12.1 g/dL (12.9-16.9) L 07/12/17 06:36 Hct 36.5 % (37.5-50.1) L 07/12/17 06:36 Lymphocytes # 0.4 K/mcL (0.6-4.6) L 07/10/17 02:44 ABG pO2 81 mmHg (85-104) L 07/12/17 04:47 ABG HCO3 31 mEq/L (21-27) H 07/12/17 04:47 ABG Total CO2 32 mEq/L (20-26) H 07/12/17 04:47 ABG Base Excess 5.7 mEq/L (-2.0 to 3.0) H 07/12/17 04:47 Creatinine 0.62 mg/dL (0.72-1.25) L 07/12/17 06:36 BUN/Creatinine Ratio 31 (6-26) H 07/12/17 06:36 Glucose 175 mg/dL (70-99) H 07/12/17 06:36 POC Glucose 143 (58-89) H 07/11/17 20:54 Calcium 8.2 mg/dL (8.6-10.8) L 07/12/17 06:36 Albumin/Globulin Ratio 1.0 (1.1-2.2) L 07/09/17 08:36 - Clinical Findings Intake & Output: Intake & Output 07/11/17 07/12/17 07/12/17 23:59 07:59 15:59 Intake Total 261 / 261 531 / 531 Output Total 150 / 150 300 / 300 Balance 111 / 111 231 / 231 Weight 82.8 kg Consult Discharge Plan - Plan [facility]errals: [facility]Primary Care Provider[facility] - <Ashlyn Ray - Last Filed: 07/12/17 16:51> Date of Encounter: 07/12/17 Objective PUL Vital signs: Last Vital Signs Temp 97.6 F 07/12/17 15:37 Pulse 102 07/12/17 16:00 Resp 14 07/12/17 16:00 BP 134/73 07/12/17 16:00 Pulse Ox 92 07/12/17 16:00 Results - Laboratory Findings CBC and BMP: 07/12/17 06:36 07/12/17 06:36 ABG ABG pH 7.44 pH Units (7.32-7.45) 07/12/17 04:47 ABG pCO2 45 mmHg (35-45) 07/12/17 04:47 ABG pO2 81 mmHg (85-104) L 07/12/17 04:47 ABG O2 Saturation 96 % (95-98) 07/12/17 04:47 Abnormal lab findings: Abnormal lab results RBC 3.86 M/mcL (4.19-5.50) L 07/12/17 06:36 Hgb 12.1 g/dL (12.9-16.9) L 07/12/17 06:36 Hct 36.5 % (37.5-50.1) L 07/12/17 06:36 Lymphocytes # 0.4 K/mcL (0.6-4.6) L 07/10/17 02:44 ABG pO2 81 mmHg (85-104) L 07/12/17 04:47 ABG HCO3 31 mEq/L (21-27) H 07/12/17 04:47 ABG Total CO2 32 mEq/L (20-26) H 07/12/17 04:47 ABG Base Excess 5.7 mEq/L (-2.0 to 3.0) H 07/12/17 04:47 Creatinine 0.62 mg/dL (0.72-1.25) L 07/12/17 06:36 BUN/Creatinine Ratio 31 (6-26) H 07/12/17 06:36 Glucose 175 mg/dL (70-99) H 07/12/17 06:36 POC Glucose 143 (58-89) H 07/11/17 20:54 Calcium 8.2 mg/dL (8.6-10.8) L 07/12/17 06:36 Albumin/Globulin Ratio 1.0 (1.1-2.2) L 07/09/17 08:36 - Clinical Findings Intake & Output: Intake & Output 07/12/17 07/12/17 07/12/17 07:59 15:59 23:59 Intake Total 531 / 531 1500 / 1500 Output Total 300 / 300 700 / 700 Balance 231 / 231 800 / 800 Weight 82.8 kg - Attending Attestation I saw the patient with the resident agree with History and Physical exam findings. 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 NECK : No JVD appreciated Pulmonary : Patient had minimal leak , adequate gas exchange will extubate him to nebulized racemic epinephrine. Patient was extubated no evidence of stridor , patient was taking sentences with some mild hoarseness of voice.Omar stop H1 blockers will continue 1 more day of steroids and stop. Cardiac : Hemodynamically stable. HTN will start on Hydrochlorthiazide and Hydralazine . Patient has tachycardia and hypertension patient is experiencing early DT will start him back on Precedex .EKG showed subendocardial ischemia will trend troponins will give IV prn Beta blockers if the heart rate is >100. This ischemia most likely supply demand mismatch will need a stress test when stable. Nutrition/GI: PPI prophylaxis . Renal : Labs and output reviewed . UOP improved with bolus if the UOP tapers will bolus as needed. Heme onc : No acute issues Disposition : Critical Code status: Full Code Family/POA: Son . Spent 35 minutes of critical care time
[2017-07-12] MEDS ORDERED: Racepinephrine Neb 0.5 ML VIAL IH ONE (09:16)
[2017-07-12] MEDS: hydroCHLOROthiazide 25 MG TABLET PO SCH (11:49)
[2017-07-12] MEDS ORDERED: Dexmedetomidine HCl 400 MCG/100 ML MLS IVC ONE (14:22)
[2017-07-12] MEDS ORDERED: *HR* Metoprolol 5 MG/5 ML VIAL IVP PRN (15:40)
[2017-07-12] MEDS: Famotidine 20 MG TABLET PO SCH (17:37)
[2017-07-12] MEDS: MethylPREDNISolone 40 MG/ML VIAL IVP SCH (17:37)
[2017-07-12] MEDS: hydrALAZINE 25 MG TABLET PO SCH ×2 (17:41→23:32)
[2017-07-12] MEDS ORDERED: Thiamine (B-1) 100 MG, Folic Acid 1 MG, MVI, adult with vitamin K 10 ML in 0.9 % Sodi... IVPB SCH (18:00)
[2017-07-12] MEDS: diazePAM 10 MG/2 ML SYRINGE IVP PRN (21:31)
[2017-07-13] MEDS: diazePAM 10 MG/2 ML SYRINGE IVP PRN (01:06)
[2017-07-13] MEDS: Ipratropium/Albuterol Neb 3 ML IH SCH ×4 (03:50→22:46)
[2017-07-13 04:46] LABS: Hematocrit 36.8 % (37.5-50.1); Hemoglobin 12.4 g/dL (12.9-16.9); Mean Corpuscular HGB Conc 33.7 g/dL (31.6-35.5); Mean Corpuscular Hemoglobin 30.9 pg (28.0-33.3); Mean Corpuscular Volume 91.8 fL (83.0-100.0); Platelet Count 158 K/mcL (140-400); Red Blood Count 4.01 M/mcL (4.19-5.50); Red Cell Distribution Width 14.1 % (11.5-14.5)
[2017-07-13 04:54] LABS: BUN/Creatinine Ratio 22 (6-26); Blood Urea Nitrogen 13 mg/dL (8-26); Calcium 8.1 mg/dL (8.6-10.8); Carbon Dioxide 25 mEq/L (19-29); Chloride 103 mEq/L (98-109); Glucose 101 mg/dL (70-99); Osmolality,Calculated 284 (280-300); Potassium 3.8 mEq/L (3.5-4.5); Sodium 137 mEq/L (136-145); eGFR For African Americans > 60 (> 60); eGFR For Non-African Americans > 60 (> 60)
[2017-07-13] MEDS: MethylPREDNISolone 40 MG/ML VIAL IVP SCH (04:59)
[2017-07-13] MEDS: *HR* Heparin 5,000 UNIT/ML VIAL SQ SCH ×2 (04:59→18:48)
[2017-07-13] MEDS: Famotidine 20 MG TABLET PO SCH ×2 (04:59→18:49)
--- NOTE | 2017-07-13 07:18 | Pulmonology Progress Note ---
<Gregorio Crespo - Last Filed: 07/13/17 11:14> Date of Encounter: 07/13/17 Time of Encounter: 07:17 Assessment and Plan (1) BETTYE inhibitor-aggravated angioedema Current Visit: Yes Status: Acute Patient has been on ACEI for 4 years, he was recently dose changed from 30 to 40 mg. Patient presented to ED with worsened tongue swelling, and emergently intubated to protect his airway. due to history less likely HAE. Patient received 2 units FFP on 07/10 and angioedema significantly decreased the next morning. - angioedema has clinically resolved - Patient was extubated yesterday and currently on 2 L NC Sat 97% - D/C benadryl, methylprednisolone (solumedrol) 60 mg IV Q8hr - continue hold ACEI Qualifiers: Encounter type: initial encounter Qualified Code(s): T78.3XXA - Angioneurotic edema, initial encounter; T46.4X5A - Adverse effect of angiotensin -converting-enzyme inhibitors, initial encounter (2) Hypertension Current Visit: Yes Status: Acute Chronic, currently stable. has steadily increased. - continue to closely follow BP - Hydralazine PO and IV PRN - restarted on hctz - started on amlodopine 5 mg Qualifiers: Hypertension type: unspecified Qualified Code(s): I10 - Essential (primary ) hypertension (3) COPD (chronic obstructive pulmonary disease) Current Visit: Yes Status: Acute chronic COPD. currently stable. last ABG pH 7.44 pCO2 45, HCO3 32 - continue duonebs q6hrs - continue methylprednisolone (solumedrol) 40 mg IV Q8hr Qualifiers: COPD type: unspecified COPD Qualified Code(s): J44.9 - Chronic obstructive pulmonary disease, unspecified (4) DVT prophylaxis Current Visit: Yes Status: Acute subQ heparin (5) History of alcohol abuse Current Visit: Yes Status: Acute Hx of etoh abuse according to daughter and son. - [facility] protocol upon extubation Subjective Principal diagnosis: ACEI induced Angioedema Interval history: Mr Poe is a 67 yo M on day 5 of admission 2/2 angioedema most likely 2/2 ACEI with Hx of COPD, EtOH abuse, and HTN. Patient was seen alone today. Patient was extubated yesterday. Overnight, patient was restless and reported hallucinating. Patient was given Diazepam Objective PUL Vital signs: Last Vital Signs Temp 97.6 F 07/12/17 23:00 Pulse 51 07/13/17 05:54 Resp 14 07/13/17 05:54 BP 167/90 07/13/17 05:54 Pulse Ox 97 07/13/17 05:54 Results - Laboratory Findings CBC and BMP: 07/13/17 04:24 07/13/17 04:24 ABG ABG pH 7.44 pH Units (7.32-7.45) 07/12/17 04:47 ABG pCO2 45 mmHg (35-45) 07/12/17 04:47 ABG pO2 81 mmHg (85-104) L 07/12/17 04:47 ABG O2 Saturation 96 % (95-98) 07/12/17 04:47 Abnormal lab findings: Abnormal lab results RBC 4.01 M/mcL (4.19-5.50) L 07/13/17 04:24 Hgb 12.4 g/dL (12.9-16.9) L 07/13/17 04:24 Hct 36.8 % (37.5-50.1) L 07/13/17 04:24 Lymphocytes # 0.4 K/mcL (0.6-4.6) L 07/10/17 02:44 ABG pO2 81 mmHg (85-104) L 07/12/17 04:47 ABG HCO3 31 mEq/L (21-27) H 07/12/17 04:47 ABG Total CO2 32 mEq/L (20-26) H 07/12/17 04:47 ABG Base Excess 5.7 mEq/L (-2.0 to 3.0) H 07/12/17 04:47 Creatinine 0.58 mg/dL (0.72-1.25) L 07/13/17 04:24 Glucose 101 mg/dL (70-99) H 07/13/17 04:24 POC Glucose 108 (58-89) H 07/12/17 23:22 Calcium 8.1 mg/dL (8.6-10.8) L 07/13/17 04:24 Troponin I 0.14 ng/mL (0-0.03) H* 07/13/17 04:24 Albumin/Globulin Ratio 1.0 (1.1-2.2) L 07/09/17 08:36 - Clinical Findings Intake & Output: Intake & Output 07/12/17 07/12/17 07/13/17 15:59 23:59 07:59 Intake Total 1500 / 1500 1060 / 1060 611.2 / 611.2 Output Total 700 / 700 2950 / 2950 850 / 850 Balance 800 / 800 -1890 / -1890 -238.8 / -238.8 Weight 82.9 kg Consult Discharge Plan - Plan [facility]errals: [facility] [Primary Care Provider] - <Ashlyn Ray - Last Filed: 07/13/17 19:30> Date of Encounter: 07/13/17 Objective PUL Vital signs: Last Vital Signs Temp 98.4 F 07/13/17 19:11 Pulse 102 07/13/17 19:11 Resp 17 07/13/17 19:11 BP 156/84 07/13/17 19:11 Pulse Ox 94 07/13/17 19:11 Results - Laboratory Findings CBC and BMP: 07/13/17 04:24 07/13/17 04:24 ABG ABG pH 7.44 pH Units (7.32-7.45) 07/12/17 04:47 ABG pCO2 45 mmHg (35-45) 07/12/17 04:47 ABG pO2 81 mmHg (85-104) L 07/12/17 04:47 ABG O2 Saturation 96 % (95-98) 07/12/17 04:47 Abnormal lab findings: Abnormal lab results RBC 4.01 M/mcL (4.19-5.50) L 07/13/17 04:24 Hgb 12.4 g/dL (12.9-16.9) L 07/13/17 04:24 Hct 36.8 % (37.5-50.1) L 07/13/17 04:24 Lymphocytes # 0.4 K/mcL (0.6-4.6) L 07/10/17 02:44 ABG pO2 81 mmHg (85-104) L 07/12/17 04:47 ABG HCO3 31 mEq/L (21-27) H 07/12/17 04:47 ABG Total CO2 32 mEq/L (20-26) H 07/12/17 04:47 ABG Base Excess 5.7 mEq/L (-2.0 to 3.0) H 07/12/17 04:47 Creatinine 0.58 mg/dL (0.72-1.25) L 07/13/17 04:24 Glucose 101 mg/dL (70-99) H 07/13/17 04:24 POC Glucose 108 (58-89) H 07/12/17 23:22 Calcium 8.1 mg/dL (8.6-10.8) L 07/13/17 04:24 Troponin I 0.14 ng/mL (0-0.03) H* 07/13/17 04:24 Albumin/Globulin Ratio 1.0 (1.1-2.2) L 07/09/17 08:36 - Clinical Findings Intake & Output: Intake & Output 07/13/17 07/13/17 07/13/17 07:59 15:59 23:59 Intake Total 611.2 / 611.2 460 / 460 700 / 700 Output Total 850 / 850 1900 / 1900 0 / 0 Balance -238.8 / -238.8 -1440 / -1440 700 / 700 - Attending Attestation I saw the patient with the resident agree with History and Physical exam findings. 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 NECK : No JVD appreciated Pulmonary : Stable post extubation adequate exchange will wean off O2 Cardiac : Hemodynamically stable. HTN will starte on Hydrochlorthiazide and Hydralazine will add on Norvasc today . Patient has tachycardia and hypertension patient is experiencing early DT will start him back on Precedex .EKG showed subendocardial ischemia with minimal leak in Troponin .will give IV prn Beta blockers if the heart rate is >100. This ischemia most likely supply demand mismatch will need a stress test when stable. Nutrition/GI: PPI prophylaxis . Renal : Labs and output reviewed Heme onc : No acute issues Disposition : Stable for Floor transfer Code status: Full Code Family/POA: Son .
[2017-07-13] MEDS: Insulin LISPRO 300 UNITS/3 ML VIAL SQ SCH ×3 (08:14→16:45)
[2017-07-13] MEDS: hydroCHLOROthiazide 25 MG TABLET PO SCH (09:31)
[2017-07-13] MEDS: hydrALAZINE 25 MG TABLET PO SCH ×3 (09:33→23:00)
[2017-07-13] MEDS ORDERED: D5% in Water 1,000 ML IVC PRN (13:08)
[2017-07-13] MEDS ORDERED: Dextrose Gel 15 GM PO PRN ×2 (13:08)
[2017-07-13] MEDS ORDERED: *HR* Dextrose 50 % in Water (Syg) 50 ML SYRINGE IVP PRN (13:08)
[2017-07-13] MEDS ORDERED: *HR* Metoprolol 5 MG/5 ML VIAL IVP PRN (13:08)
[2017-07-13] MEDS ORDERED: Dexmedetomidine HCl 400 MCG/100 ML MLS IVC SCH (13:08)
[2017-07-13] MEDS ORDERED: Thiamine (B-1) 100 MG, Folic Acid 1 MG, MVI, adult with vitamin K 10 ML in 0.9 % Sodi... IVPB SCH (18:00)
--- NOTE | 2017-07-13 19:35 | Electrocardiograph Report ---
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
[2017-07-13] MEDS ORDERED: Insulin LISPRO 300 UNITS/3 ML VIAL SQ SCH (21:00)
[2017-07-13] MEDS ORDERED: *HR* LORazepam 0.5 MG TABLET PO ONE (21:04)
[2017-07-13] MEDS: Acetaminophen 325 MG TABLET PO PRN (21:37)
[2017-07-14] MEDS: Ipratropium/Albuterol Neb 3 ML IH SCH ×4 (03:34→22:38)
[2017-07-14 04:53] LABS: Hematocrit 35.3 % (37.5-50.1); Hemoglobin 12.1 g/dL (12.9-16.9); Mean Corpuscular HGB Conc 34.3 g/dL (31.6-35.5); Mean Corpuscular Hemoglobin 31.3 pg (28.0-33.3); Mean Corpuscular Volume 91.2 fL (83.0-100.0); Platelet Count 170 K/mcL (140-400); Red Blood Count 3.87 M/mcL (4.19-5.50); Red Cell Distribution Width 14.2 % (11.5-14.5)
[2017-07-14 05:06] LABS: BUN/Creatinine Ratio 21 (6-26); Blood Urea Nitrogen 13 mg/dL (8-26); Carbon Dioxide 25 mEq/L (19-29); Chloride 98 mEq/L (98-109); Glucose 85 mg/dL (70-99); Osmolality,Calculated 275 (280-300); Sodium 133 mEq/L (136-145); eGFR For African Americans > 60 (> 60); eGFR For Non-African Americans > 60 (> 60)
[2017-07-14] MEDS: Famotidine 20 MG TABLET PO SCH (05:09)
[2017-07-14] MEDS: *HR* Heparin 5,000 UNIT/ML VIAL SQ SCH (05:09)
[2017-07-14] MEDS ORDERED: predniSONE 20 MG TABLET PO SCH ×2 (09:00)
[2017-07-14] MEDS ORDERED: hydroCHLOROthiazide 25 MG TABLET PO SCH (09:00)
[2017-07-14] MEDS ORDERED: Sennosides/Docusate Sodium TABLET PO SCH ×2 (09:00)
[2017-07-14] MEDS ORDERED: amLODIPine 5 MG TABLET PO SCH ×2 (09:00)
[2017-07-14] MEDS: hydrALAZINE 25 MG TABLET PO SCH (10:49)
[2017-07-14] MEDS ORDERED: *HR* OxyCODONE/APAP 5/325 TABLET PO PRN (11:44)
[2017-07-14] MEDS: Acetaminophen 325 MG TABLET PO PRN (12:18)
[2017-07-14] MEDS: Insulin LISPRO 300 UNITS/3 ML VIAL SQ SCH (14:17)
[2017-07-14 15:24] VITALS: BP 155/88
--- NOTE | 2017-07-14 16:04 | Internal Med Progress Note ---
Date of Encounter: 07/14/17 Time of Encounter: 16:02 - Assessment and plan (1) BETTYE inhibitor-aggravated angioedema Current Visit: Yes Status: Acute Assessment and plan: Patient has been on ACEI for 4 years, he was recently dose changed from 30 to 40 mg. Patient presented to ED with worsened tongue swelling, and emergently intubated to protect his airway. due to history less likely HAE. Patient received 2 units FFP on 07/10 and angioedema significantly decreased the next morning. Angioedema has clinically resolved patient has no complaints at this time. He reported that the swelling has completely resolved. He denies shortness of breath, chest pain, change in vision. - Patient currently on 2 L NC O2 96% - continue prednisone PO - continue hold ACEI -possible discharge tomorrow, patient was requesting to be discharged today Qualifiers: Encounter type: initial encounter Qualified Code(s): T78.3XXA - Angioneurotic edema, initial encounter; T46.4X5A - Adverse effect of angiotensin -converting-enzyme inhibitors, initial encounter (2) Hypertension Current Visit: Yes Status: Acute Assessment and plan: History of hypertension continue amlodipine, hydralazine, hydrochlorothiazide -Lopressor PRN -avoid bettye inhibitors Qualifiers: Hypertension type: unspecified Qualified Code(s): I10 - Essential (primary ) hypertension (3) COPD (chronic obstructive pulmonary disease) Current Visit: Yes Status: Acute Assessment and plan: History of COPD currently stable O2 97% -continue prednisone -Duoneb Qualifiers: COPD type: unspecified COPD Qualified Code(s): J44.9 - Chronic obstructive pulmonary disease, unspecified (4) DVT prophylaxis Current Visit: Yes Status: Acute Assessment and plan: SQ heparin (5) History of alcohol abuse Current Visit: Yes Status: Acute Assessment and plan: History of alcohol abuse according to the daughter and son the patient reported that he currently only drinks about 6 beers a week the patient is currently not exhibiting signs of withdrawal -CIWA protocol in place - Subjective Interval history: Patient is plain about comfortably talking with ex-. Respiratory therapy had just brought in his duo. He stated that he does not have any trouble breathing and swelling has gone completely away. He is asking if he can go home this evening. He stated that he requested the medication and he was offered Percocet however he stated he declines due to not wanting to take Percocet but had decided to take Tylenol instead. - Constitutional Vitals: Temp Pulse Resp BP Pulse Ox 98.1 F 87 16 155/88 96 07/14/17 15:24 07/14/17 15:24 07/14/17 15:49 07/14/17 15:24 07/14/17 15:49 Exam: Gen.: Vitals noted. No acute distress. AAOx3 HEENT: oropharynx clear, Normocephalic, atraumatic, face is a little red in color Neck: Supple. No adenopathy. Cardiac: RRR, no murmur, +S1/S2 Pulmonary: CTA bilaterally, no wheezes, rales or rhonchi, equal chest expansion Abdomen: soft, nontender, Bowel sounds noted, no guarding MSK: ROM intact, no joint swelling noted Extremities: no BLE edema, nontender calf, no cyanosis or clubbing Neuro: A&Ox3, moves all extremities Psych: Appropriate mood and behavior Internal Medicine: Result - Labs CBC & Chem 7: 07/14/17 03:00 07/14/17 03:00 Labs: Short CBC 07/14/17 Range/Units 03:00 WBC 9.1 (4.3-11.1) K/mcL Hgb 12.1 L (12.9-16.9) g/dL Hct 35.3 L (37.5-50.1) % Plt Count 170 (140-400) K/mcL BMP 07/14/17 03:00 Sodium 133 L Potassium 3.0 L Chloride 98 Carbon Dioxide 25 BUN 13 Creatinine 0.63 L Glucose 85 Calcium 8.0 L - ABG Interpretation ABG results: ABG ABG pH 7.44 pH Units (7.32-7.45) 07/12/17 04:47 ABG pCO2 45 mmHg (35-45) 07/12/17 04:47 ABG pO2 81 mmHg (85-104) L 07/12/17 04:47 ABG O2 Saturation 96 % (95-98) 07/12/17 04:47 Consult Discharge Plan - Plan [facility]errals: [facility] [Primary Care Provider] -
[2017-07-14] MEDS ORDERED: Metoprolol XL (24 HR) Succ 25 MG TAB.ER.24H PO SCH (16:45)
--- NOTE | 2017-07-14 16:47 | Discharge Summary ---
<Stephanie Seo - Last Filed: 07/14/17 16:42> Date of Encounter: 07/14/17 Time of Encounter: 16:42 - Discharge Diagnosis (1) JOSE inhibitor-aggravated angioedema Priority: Primary Status: Acute Qualifiers: Encounter type: initial encounter Qualified Code(s): T78.3XXA - Angioneurotic edema, initial encounter; T46.4X5A - Adverse effect of angiotensin -converting-enzyme inhibitors, initial encounter (2) Hypertension Priority: Secondary Status: Acute Qualifiers: Hypertension type: unspecified Qualified Code(s): I10 - Essential (primary ) hypertension (3) COPD (chronic obstructive pulmonary disease) Priority: Secondary Status: Acute Qualifiers: COPD type: unspecified COPD Qualified Code(s): J44.9 - Chronic obstructive pulmonary disease, unspecified (4) DVT prophylaxis Priority: Secondary Status: Acute (5) History of alcohol abuse Priority: Secondary Status: Acute - Discharge Medications Prescriptions: Albuterol Sulfate [Proair Hfa] 2 puff IH QID PRN #1 hfa.aer.ad PRN Reason: Shortness Of Breath amLODIPine [Norvasc] 10 mg PO DAILY #30 tablet hydroCHLOROthiazide [Hydrochlorothiazide] 12.5 mg PO DAILY #30 tablet Metoprolol XL (24 HR) Succ [Toprol Xl] 25 mg PO DAILY #30 tab.er.24h predniSONE [PredniSONE] 40 mg PO DAILY 5 Days #10 tablet Home Medications: Albuterol Sulfate [Proair Hfa] 2 puff IH QID PRN #1 hfa.aer.ad 07/14/17 [Rx] Metoprolol XL (24 HR) Succ [Toprol Xl] 25 mg PO DAILY #30 tab.er.24h 07/14/17 [ Rx] amLODIPine [Norvasc] 10 mg PO DAILY #30 tablet 07/14/17 [Rx] hydroCHLOROthiazide [Hydrochlorothiazide] 12.5 mg PO DAILY #30 tablet 07/14/17 [ Rx] predniSONE [PredniSONE] 40 mg PO DAILY 5 Days #10 tablet 07/14/17 [Rx] Allergies/Adverse Reactions: 3 Allergy/AdvReac Type Severity Reaction Status Date / Time lisinopril Allergy Swelling Verified 07/09/17 16:25 of Lip/Tongue/Throat Procedures/tests Complete & Pending: Procedures Performed prior 72 hours Category Date Time Status ECG 12 lead ECG [ECG] Routine Y 07/12/17 15:43 Completed Date of admission: 07/09/17 09:07 [facility] care physician: [facility] Consults: 07/12/17 09:25 Consult to E [employer] Marketing Manager [CONS] Routine Reason for SW Consult: Hx of EtOH abuse Discharging clinician: Claude Lee - Patient Status Disposition: Home, Self-Care Condition: Good Functional capacity at discharge: independent ambulation Overall status at discharge: patient is back to baseline - Discharge Instructions Follow Up With: [facility] [Primary Care Provider] - Additional Instructions: Start amlodipine, toprol, hydrochlorothiazide for blood pressure finish the prednisone for 5 days follow up with PCP in about a week do NOT take jose inhibitors such as lisinopril return to the hospital should you have difficulty breathing or swelling - Diet and Activity Activity: resume usual activities as tolerated Diet: advance to your usual diet Hospital course: Mr. Poe is a 67 year old male who presented to the ED for evaluation of swelling of his tongue. PMH: COPD, HTN, ETOH abuse. Onset this morning when he awoke and is getting worse. Patient is currently on an JOSE inhibitor. He has been for many years. His dose was recently changed from 30 mg to 40 mg; first 40 mg dose was yesterday. He did take his JOSE inhibitor this morning. No other changes in medications or unusual exposures. Per daughter, patient has a long-standing history of heavy alcohol abuse. No other history can be obtained at this time. Patient is intubated and sedated in the ED. The patient was given steroids, I medications to control his blood pressure. Upon activation the patient was placed on CIWA protocol due to history of alcohol abuse. Jose inhibitor such as lisinopril oral avoided. The patient was monitored in the ICU and then transferred to a step down unit due to clinical improvement. The patient stated that he felt much better and that the swelling had completely resolved. He was requesting to be discharged to go home due to being back at baseline. The patient denied oral swelling, chest pain, dyspnea, wheezing, palpitations, fever, chills, abdominal pain. The patient was instructed to avoid Jose inhibitors such as lisinopril for the rest of his life. He was started on blood pressure medications to control his hypertension. He was given prednisone due to recent integration. He was told to follow-up with his PCP in about a week into a charge of the ED if he should develop swelling or shortness of breath. He stated clear understanding of the treatment plan. All questions were answered. - Time Spent with Patient Total time spent providing and/or coordinating discharge services: - Constitutional Vitals: Temp Pulse Resp BP Pulse Ox 98.1 F 87 16 155/88 96 07/14/17 15:24 07/14/17 15:24 07/14/17 15:49 07/14/17 15:24 07/14/17 15:49 Exam: Gen.: Vitals noted. No acute distress. AAOx3 HEENT: oropharynx clear, Normocephalic, atraumatic, face is a little red in color Neck: Supple. No adenopathy. Cardiac: RRR, no murmur, +S1/S2 Pulmonary: CTA bilaterally, no wheezes, rales or rhonchi, equal chest expansion Abdomen: soft, nontender, Bowel sounds noted, no guarding MSK: ROM intact, no joint swelling noted Extremities: no BLE edema, nontender calf, no cyanosis or clubbing Neuro: A&Ox3, moves all extremities Psych: Appropriate mood and behavior <Claude Lee H - Last Filed: 07/14/17 17:02> Date of Encounter: 07/14/17 Procedures/tests Complete & Pending: Procedures Performed prior 72 hours Category Date Time Status ECG 12 lead ECG [ECG] Routine Y 07/12/17 15:43 Completed Date of admission: 07/09/17 09:07 Primary care physician: [facility] Consults: 07/12/17 09:25 Consult to [employer] Marketing Manager [CONS] Routine Reason for SW Consult: Hx of EtOH abuse Hospital course: Mr. Poe is a 67 year old male - Time Spent with Patient Total time spent providing and/or coordinating discharge services: - Constitutional Vitals: Temp Pulse Resp BP Pulse Ox 98.1 F 87 16 155/88 96 07/14/17 15:24 07/14/17 15:24 07/14/17 15:49 07/14/17 15:24 07/14/17 15:49 - Attending Attestation Time spent on this discharge, 40 minutes Avoid lisinopril and other jose inhibitors, avoid ARBs Complete 5 more days of prednisone, start Toprol, amlodipine and hydrochlorothiazide I examined this patient and my medical decision-making was reviewed with the Resident Physician. I agree with the documented findings, disposition and treatment plan as described except to the extent set forth below.
== END 2017-07-14 19:30 | disposition home or self-care (01) | DRG 916 ==
LOC: EMEROO 08:07 → ICNU 09:07 → 2NENU 07-13 14:11
PROVIDERS: ADMIT Internal Medicine Hospice and Palliative Medicine; ATTEND Internal Medicine Hospice and Palliative Medicine

== ENCOUNTER 2022-02-21 17:30 | Inpatient (IN) ==
[2022-02-21] MEDS ORDERED: Aspirin 325 MG TABLET PO ONE (18:34)
[2022-02-21] MEDS ORDERED: *HR* Heparin 5,000 UNIT/ML VIAL IVP PRN ×2 (18:55)
[2022-02-21] MEDS ORDERED: *HR* Heparin 5,000 UNIT/ML VIAL IVP ONE (18:55)
[2022-02-21] MEDS: Heparin 25,000UNIT/250ML 1/2NS 25,000 UNIT/250 ML IV.SOLN IVC SCH (19:14)
[2022-02-21 19:16] LABS: Basophils % 0.4 %; Eosinophils # 0.1 K/mcL (0.0-0.6); Immature Granulocytes % 0.2 % (0-4); Lymphocytes # 1.3 K/mcL (0.6-4.6); Mean Corpuscular HGB Conc 34.2 g/dL (31.6-35.5); Mean Corpuscular Volume 90.5 fL (83.0-100.0); Mean Platelet Volume 8.7 fL (9.4-12.4); Monocytes # 0.6 K/mcL (0.0-1.3); Monocytes % 11.8 %; Neutrophils # 3.3 K/mcL (1.6-8.9); Platelet Count 266 K/mcL (140-400); Red Cell Distribution Width 16.1 % (11.5-14.5); Segmented Neutrophils % 61.6 %; White Blood Count 5.4 K/mcL (4.3-11.1)
[2022-02-21 19:23] LABS: Heparin anti-factor XA UFH < 0.04 IU/mL (0.30-0.70); Prothrombin Time 11.4 Seconds (9.4-12.1)
[2022-02-21 19:26] LABS: Activated Partial Thrombo Time 37.6 Seconds (26.0-36.0)
[2022-02-21 19:50] LABS: Alanine Aminotransferase 8 Units/L (7-52); Albumin 3.9 g/dL (3.5-5.7); Albumin/Globulin Ratio 1.4 (1.1-2.2); Alkaline Phosphatase 48 Units/L (34-104); Aspartate Amino Transferase 15 Units/L (13-39); BUN/Creatinine Ratio 12 (6-26); Bilirubin,Total 0.4 mg/dL (0.3-1.0); Blood Urea Nitrogen 7 mg/dL (8-23); Calcium 8.7 mg/dL (8.6-10.3); Carbon Dioxide 25 mEq/L (23-29); Chloride 101 mEq/L (98-107); Globulin 2.8 g/dL (2.4-3.5); Glucose 93 mg/dL (70-105); Osmolality,Calculated 276 (280-300); Potassium 3.7 mEq/L (3.5-5.1); Sodium 134 mEq/L (136-145); Total Protein 6.7 g/dL (6.4-8.9); eGFR For African Americans > 60 (> 60); eGFR For Non-African Americans > 60 (> 60)
[2022-02-21] MEDS ORDERED: Naloxone 0.4 MG/ML INJ IVP PRN (20:03)
[2022-02-21] MEDS ORDERED: Nitroglycerin 0.4 MG TAB.SUBL SL PRN (20:08)
[2022-02-21] MEDS ORDERED: Morphine Sulfate 2 MG/ML SYRINGE IVP PRN (22:09)
[2022-02-21] MEDS: carvediloL 6.25 MG TABLET PO SCH (22:22)
[2022-02-22 02:03] LABS: Basophils % 0.5 %; Eosinophils # 0.1 K/mcL (0.0-0.6); Hematocrit 37.3 % (37.5-50.1); Hemoglobin 12.6 g/dL (12.9-16.9); Immature Granulocytes % 0.2 % (0-4); Lymphocytes # 1.1 K/mcL (0.6-4.6); Mean Corpuscular HGB Conc 33.8 g/dL (31.6-35.5); Mean Corpuscular Hemoglobin 30.7 pg (28.0-33.3); Mean Corpuscular Volume 90.8 fL (83.0-100.0); Mean Platelet Volume 8.9 fL (9.4-12.4); Monocytes # 0.6 K/mcL (0.0-1.3); Neutrophils # 3.8 K/mcL (1.6-8.9); Platelet Count 272 K/mcL (140-400); Red Blood Count 4.11 M/mcL (4.19-5.50); Red Cell Distribution Width 15.9 % (11.5-14.5); Segmented Neutrophils % 67.3 %; White Blood Count 5.6 K/mcL (4.3-11.1)
[2022-02-22 02:22] LABS: BUN/Creatinine Ratio 17 (6-26); Blood Urea Nitrogen 9 mg/dL (8-23); Calcium 8.5 mg/dL (8.6-10.3); Carbon Dioxide 26 mEq/L (23-29); Chloride 102 mEq/L (98-107); Glucose 139 mg/dL (70-105); Magnesium 1.8 mg/dL (1.6-2.6); Osmolality,Calculated 279 (280-300); Phosphorous 2.9 mg/dL (2.7-4.5); Potassium 3.7 mEq/L (3.5-5.1); Sodium 134 mEq/L (136-145); eGFR For African Americans > 60 (> 60); eGFR For Non-African Americans > 60 (> 60)
[2022-02-22] MEDS ORDERED: Isovue-370 500 ML BOTTLE IVP ONE ×2 (07:08→17:39)
[2022-02-22] MEDS: Budesonide/Formoterol 160/4.5 1 PUFF INH IH SCH ×2 (07:51→19:49)
[2022-02-22] MEDS ORDERED: Perflutren Lipid Microsphere 1.3 ML in 0.9 % Sodium Chloride 8.7 ML IVP PRN (08:46)
[2022-02-22] MEDS: Aspirin 81 MG TAB.CHEW PO SCH (09:16)
[2022-02-22] MEDS: carvediloL 6.25 MG TABLET PO SCH ×2 (09:17→16:45)
[2022-02-22] MEDS: Ipratropium/Albuterol Neb 3 ML IH PRN (16:56)
[2022-02-22] MEDS: Heparin 25,000UNIT/250ML 1/2NS 25,000 UNIT/250 ML IV.SOLN IVC SCH (18:14)
[2022-02-23 01:03] LABS: Basophils % 0.4 %; Eosinophils # 0.2 K/mcL (0.0-0.6); Eosinophils % 3.6 %; Hematocrit 34.8 % (37.5-50.1); Hemoglobin 11.7 g/dL (12.9-16.9); Immature Granulocytes % 0.2 % (0-4); Lymphocytes # 1.4 K/mcL (0.6-4.6); Lymphocytes % 24.6 %; Mean Corpuscular HGB Conc 33.6 g/dL (31.6-35.5); Mean Corpuscular Hemoglobin 30.5 pg (28.0-33.3); Mean Corpuscular Volume 90.9 fL (83.0-100.0); Monocytes # 0.6 K/mcL (0.0-1.3); Monocytes % 10.1 %; Neutrophils # 3.4 K/mcL (1.6-8.9); Platelet Count 248 K/mcL (140-400); Red Blood Count 3.83 M/mcL (4.19-5.50); Red Cell Distribution Width 16.2 % (11.5-14.5); Segmented Neutrophils % 61.1 %; White Blood Count 5.5 K/mcL (4.3-11.1)
[2022-02-23 01:14] LABS: Alanine Aminotransferase 6 Units/L (7-52); Albumin 3.4 g/dL (3.5-5.7); Albumin/Globulin Ratio 1.4 (1.1-2.2); Alkaline Phosphatase 40 Units/L (34-104); Aspartate Amino Transferase 11 Units/L (13-39); BUN/Creatinine Ratio 13 (6-26); Bilirubin,Total 0.4 mg/dL (0.3-1.0); Blood Urea Nitrogen 7 mg/dL (8-23); Calcium 8.5 mg/dL (8.6-10.3); Carbon Dioxide 24 mEq/L (23-29); Chloride 99 mEq/L (98-107); Globulin 2.5 g/dL (2.4-3.5); Glucose 94 mg/dL (70-105); Osmolality,Calculated 268 (280-300); Potassium 3.8 mEq/L (3.5-5.1); Sodium 130 mEq/L (136-145); Total Protein 5.9 g/dL (6.4-8.9); eGFR For African Americans > 60 (> 60); eGFR For Non-African Americans > 60 (> 60)
[2022-02-23] MEDS: Melatonin 3 MG TABLET PO PRN (01:49)
[2022-02-23] MEDS: Ipratropium/Albuterol Neb 3 ML IH PRN (03:50)
[2022-02-23] MEDS: Budesonide/Formoterol 160/4.5 1 PUFF INH IH SCH ×2 (07:33→20:10)
[2022-02-23] MEDS: Aspirin 81 MG TAB.CHEW PO SCH (07:51)
[2022-02-23] MEDS: carvediloL 6.25 MG TABLET PO SCH ×2 (07:51→18:03)
[2022-02-23] MEDS: Heparin 25,000UNIT/250ML 1/2NS 25,000 UNIT/250 ML IV.SOLN IVC SCH (19:38)
[2022-02-24 02:18] LABS: Basophils % 0.4 %; Eosinophils # 0.1 K/mcL (0.0-0.6); Eosinophils % 2.5 %; Hematocrit 35.6 % (37.5-50.1); Immature Granulocytes % 0.4 % (0-4); Lymphocytes # 1.1 K/mcL (0.6-4.6); Mean Corpuscular HGB Conc 33.7 g/dL (31.6-35.5); Mean Corpuscular Hemoglobin 30.3 pg (28.0-33.3); Mean Corpuscular Volume 89.9 fL (83.0-100.0); Mean Platelet Volume 8.8 fL (9.4-12.4); Monocytes # 0.6 K/mcL (0.0-1.3); Monocytes % 10.6 %; Neutrophils # 3.8 K/mcL (1.6-8.9); Platelet Count 245 K/mcL (140-400); Red Blood Count 3.96 M/mcL (4.19-5.50); Red Cell Distribution Width 15.7 % (11.5-14.5); Segmented Neutrophils % 66.1 %; White Blood Count 5.7 K/mcL (4.3-11.1)
[2022-02-24 02:33] LABS: Alanine Aminotransferase 6 Units/L (7-52); Albumin 3.4 g/dL (3.5-5.7); Albumin/Globulin Ratio 1.4 (1.1-2.2); Alkaline Phosphatase 43 Units/L (34-104); Aspartate Amino Transferase 11 Units/L (13-39); BUN/Creatinine Ratio 13 (6-26); Bilirubin,Total 0.5 mg/dL (0.3-1.0); Blood Urea Nitrogen 7 mg/dL (8-23); Calcium 8.7 mg/dL (8.6-10.3); Carbon Dioxide 23 mEq/L (23-29); Chloride 97 mEq/L (98-107); Globulin 2.5 g/dL (2.4-3.5); Glucose 96 mg/dL (70-105); Osmolality,Calculated 266 (280-300); Potassium 3.7 mEq/L (3.5-5.1); Sodium 129 mEq/L (136-145); Total Protein 5.9 g/dL (6.4-8.9); eGFR For African Americans > 60 (> 60); eGFR For Non-African Americans > 60 (> 60)
[2022-02-24] MEDS: Aspirin 81 MG TAB.CHEW PO SCH (08:09)
[2022-02-24] MEDS: carvediloL 6.25 MG TABLET PO SCH ×2 (08:09→18:04)
[2022-02-24] MEDS: Budesonide/Formoterol 160/4.5 1 PUFF INH IH SCH ×2 (10:26→19:45)
[2022-02-24] MEDS ORDERED: *HR* Midazolam HCl 2 MG/2 ML VIAL ONE (13:00)
[2022-02-24] MEDS ORDERED: *HR* FentaNYL (PF) 100 MCG/2 ML VIAL ONE (13:00)
[2022-02-24] MEDS ORDERED: ISOVUE-370 200 ML INFUS..BTL ONE ×2 (13:01→13:59)
[2022-02-24] MEDS ORDERED: *HR* Heparin 10,000 UNIT/10 ML VIAL ONE (13:01)
[2022-02-24] MEDS ORDERED: Heparin 1,000 UNITS/500 mL 500 ML ONE (13:01)
[2022-02-24] MEDS ORDERED: Nitroglycerin 1,000 MCG/5 ML VIAL IV ONE (13:01)
[2022-02-24] MEDS ORDERED: 0.9 % Sodium Chloride 1,000 ML ONE (13:01)
[2022-02-24] MEDS: *HR* Heparin 5,000 UNIT/ML VIAL SQ SCH (16:40)
[2022-02-24] MEDS: Ipratropium/Albuterol Neb 3 ML IH PRN (17:50)
[2022-02-24] MEDS ORDERED: cefTRIAXone 1,000 MG in 0.9 % Sodium Chloride 10 ML IVP SCH (18:00)
[2022-02-24] MEDS: Melatonin 3 MG TABLET PO PRN (22:18)
[2022-02-25] MEDS: *HR* Heparin 5,000 UNIT/ML VIAL SQ SCH (04:28)
[2022-02-25 05:38] LABS: Basophils % 0.1 %; Eosinophils # 0.1 K/mcL (0.0-0.6); Eosinophils % 0.9 %; Hematocrit 36.1 % (37.5-50.1); Hemoglobin 12.3 g/dL (12.9-16.9); Immature Granulocytes % 0.3 % (0-4); Lymphocytes % 11.2 %; Mean Corpuscular HGB Conc 34.1 g/dL (31.6-35.5); Mean Corpuscular Hemoglobin 31.1 pg (28.0-33.3); Mean Corpuscular Volume 91.2 fL (83.0-100.0); Mean Platelet Volume 8.9 fL (9.4-12.4); Monocytes # 0.7 K/mcL (0.0-1.3); Monocytes % 8.5 %; Neutrophils # 6.8 K/mcL (1.6-8.9); Platelet Count 250 K/mcL (140-400); Red Blood Count 3.96 M/mcL (4.19-5.50); Red Cell Distribution Width 15.7 % (11.5-14.5)
[2022-02-25 05:49] LABS: Alanine Aminotransferase 6 Units/L (7-52); Albumin 3.6 g/dL (3.5-5.7); Albumin/Globulin Ratio 1.2 (1.1-2.2); Alkaline Phosphatase 44 Units/L (34-104); Aspartate Amino Transferase 12 Units/L (13-39); BUN/Creatinine Ratio 15 (6-26); Bilirubin,Total 0.5 mg/dL (0.3-1.0); Blood Urea Nitrogen 8 mg/dL (8-23); Calcium 8.7 mg/dL (8.6-10.3); Carbon Dioxide 22 mEq/L (23-29); Chloride 99 mEq/L (98-107); Glucose 88 mg/dL (70-105); Osmolality,Calculated 270 (280-300); Potassium 4.1 mEq/L (3.5-5.1); Sodium 131 mEq/L (136-145); Total Protein 6.6 g/dL (6.4-8.9); eGFR For African Americans > 60 (> 60); eGFR For Non-African Americans > 60 (> 60)
[2022-02-25 05:52] LABS: White Blood Count 8.6 K/mcL (4.3-11.1)
[2022-02-25 06:06] VITALS: BP 145/71; PULSE 71; TEMP 98
[2022-02-25] MEDS: carvediloL 6.25 MG TABLET PO SCH (07:17)
[2022-02-25] MEDS: Aspirin 81 MG TAB.CHEW PO SCH (07:17)
[2022-02-25 09:21] LABS: Estimated Average Glucose 117 mg/dl; Hemoglobin A1C 5.7 %
[2022-02-25] MEDS: Budesonide/Formoterol 160/4.5 1 PUFF INH IH SCH (09:43)
[2022-02-25 09:45] VITALS: O2SAT 93
== END 2022-02-25 11:11 | disposition home or self-care (01) | DRG 281 ==
LOC: 3BNU 17:30 → EMEROOARM 17:30 → SUATTDRO 20:21 → 3BNU 21:27
PROVIDERS: ADMIT Internal Medicine; ATTEND Registered Nurse